=== PATIENT | male | born 1955 | race Hispanic/Latino ===

== ENCOUNTER 2016-11-26 10:12 | Inpatient (IN) | payer OTHER ==
[~2016-11-26] VITALS: Ht 180.3 cm; Wt 91.2 kg
--- NOTE | 2016-11-26 10:26 | ED PSYCHIATRIC COMPLAINT ---
History of Present Illness General Chief Complaint: Psychiatric Related Complaint Stated Complaint: +SI Source: patient Exam Limitations: no limitations Vital Signs & Intake/Output Vital Signs & Intake/Output Vital Signs Date Time Temp Pulse Resp B/P Pulse O2 O2 Flow FiO2 Ox Delivery Rate 11/27 1040 97.9 78 18 139/89 98 Room Air 11/27 0832 98.0 61 18 138/77 97 Room Air 11/27 0633 98.1 81 18 132/86 94 Room Air 11/27 0332 97.9 79 18 133/89 95 Room Air 11/27 0132 98.2 82 18 130/82 95 Room Air 11/26 2301 97.7 74 16 126/74 97 Room Air 11/26 2029 98.7 59 15 140/85 97 Room Air 11/26 1505 100.3 65 20 138/85 96 ED Intake and Output 11/27 0000 11/26 1200 Intake Total Output Total Balance Patient 220 lb Weight Allergies Coded Allergies: NO KNOWN ALLERGIES (11/03/13) Triage Note: 61 YEAR OLD MALE STATES THAT HE HAS HISTORY OF DEPRESSION AND BIPOLAR, STATES HE HAS BEEN HAVING INCREASED DEPRESSION AND THAT ON SATURDAY HE DRANK A LOT OF ALCOHOL AND TOOK 20 KLONOPIN IN AN ATTEMPT TO KILL HIMSELF, STATES THAT HE PASSED OUT AND THAT THE NEXT TIME HE REMEMBERS IS WAKING UP SOMETIME SATURDAY. PT STATES THAT HE HAS MORE CLONAZEPAM HIDDING AT HOME FOR THE NEXT TIME HE ATTEMPTS TO KILL HIMSELF. PT HAS HISTORY IN PAST OF LITHIUM TOXICITY, PT DOES TAKE LITHIUM BUT STATES TO THIS NURSE THAT HE HAS ONLY BEEN TAKING IT PRESCRIBED Triage Nurses Notes Reviewed? yes Onset: Gradual Duration: constant Timing: recent history Severity: severe Severity Numbers: 10 HPI: Patient is a 61-year-old male with a past medical history depression, prostate cancer, bipolar currently on Depakote, hypothyroidism and hypertension who presents emergency room with concerning symptoms of worsening depression and suicide ideation. I states that on he tried to commit suicide overdosing on Klonopin and drinking significant amounts of alcohol, Patient was brought in by his in which she lives in a private residence together with their son. Recent states that with his history of cancer and recent stressors at home and in the media his depression and anxiety have worsened in which she wants to inhale carbon monoxide in his garage and harm himself. Patient is compliant with his medications. Patient has not drank alcohol since the episode on . Denies any illicit drug use. Patient does smoke tobacco on occasion Denies any auditory or visual hallucinations. Patient currently denies any illness (IZZY LOVE) Reconcile Medications Amlodipine Besylate 5 MG TABLET 5 MG PO DAILY hypertension (Reported) Atorvastatin Calcium 20 MG TABLET 20 MG PO DAILY@1700 HYPERLIPIDEMIA ( Reported) Clonazepam 0.5 MG TABLET 1 TAB PO 4XDP PRN ANXIETY (Reported) Lamotrigine 200 MG TABLET 1 TAB PO DAILY MENTAL HEALTH (Reported) [place] Carbonate 300 MG CAPSULE 4 CAP PO DAILY MENTAL HEALTH (Reported) Prazosin HCl 1 MG CAPSULE 1 CAP PO QPM MENTAL HEALTH (Reported) Quetiapine Fumarate 300 MG TABLET 1 TAB PO QPM MENTAL HEALTH (Reported) (MATT TAPIA MD) Past History Travel History Traveled to [facility] past 21 day No Medical History Any Pertinent Medical History? 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 No (IZZY LOVE) Review of Systems Review of Systems Constitutional: Reports: no symptoms. EENTM: Reports: no symptoms. Respiratory: Reports: no symptoms. Cardiovascular: Reports: no symptoms. GI: Reports: no symptoms. Genitourinary: Reports: no symptoms. Musculoskeletal: Reports: no symptoms. Skin: Reports: no symptoms. Neurological/Psychological: Reports: see HPI, depressed. Hematologic/Endocrine: Reports: no symptoms. Immunologic/Allergic: Reports: no symptoms. All Other Systems: Reviewed and Negative (IZZY LOVE) Physical Exam Physical Exam General Appearance: TEARFUL AND ANXIOUS Neurological/Psychiatric: anxious, depressed affect, TEARFUL Appearance/Memory/Insight: appropriate appearance, appropriate insight, denies illness Behavoir/Eye Contact/Speech: cooperative, normal speech, good eye contact Thoughts/Hallucinations: normal thought pattern Comments: HEENT: Normal EENT exam, extraocular motion intact, no nystagmus. Pupils equally round and reactive to light and accommodation. Nose is atraumatic. External auditory canal and Tympanic membranes clear. Pharynx normal. No swelling or edema. Neck: Supple, no lymphadenopathy, normal range of motion without pain or tenderness Back: Nontender, no CVA tenderness. Cardiovascular: Regular rate and rhythms no murmurs rubs or gallops, normal JVP Respiratory: Chest nontender. No respiratory distress.breath sounds clear to auscultation bilaterally Abdomen: Soft, nontender nondistended, no appreciable organomegaly. Normal bowel sounds. No ascites Extremity: No edema, no calf tenderness to palpation, normal and equal pulses. Neuro: Alert oriented x3, motor sensory normal, cranial nerves II through XII grossly intact. Skin: No appreciable rash on exposed skin, skin is warm and dry. Psych: Mood and affect is normal, memory and judgment is normal. SAD PERSONS SAD PERSONS Response Value Male Sex? yes 1 Age <19 or >45 years? yes 1 Depression/Hopelessness? yes 2 Previous Attempts/Psych Care yes 1 Excessive Ethanol/Drug Use? yes 1 Organized/Serious Attempt yes 2 Social Support? has support 0 Stated Future Intent? yes 2 Total 10 SAD PERSONS Done? yes (KARELY SNOW,IZZY) Progress Differential Diagnosis: drug intoxication, drug overdose, drug withdrawal, electrolyte abnormality, encephalitis, hypoglycemia, hypothyroidism, IC hem/mass /tumor, meningitis Plan of Care: Orders Procedure Date/time Status Regular Diet 11/27 L Active EKG 11/27 1039 Active Patient Data - inpatient psych 11/27 1026 Active Admit to inpatient psych 11/27 1026 Active Vital Signs 11/27 UNK Active Nursing Misc 11/27 UNK Active Alternative Nursing Therapy 11/27 UNK Active Activity/Ambulation 11/27 UNK Active Heart Healthy Diet 11/26 D Complete Current Medications Sig/Genoveva Start time Last Medication Dose Stop Time Status Admin Amlodipine Besylate 5 MG DAILY 11/28 1000 [facility] (Norvasc) Prazosin HCl 1 MG QPM 11/27 2199 UNVr (Minipress 1 MG) Quetiapine Fumarate 300 MG AT BEDTIME 11/27 220 UN[facility]r (Seroquel) Atorvastatin Calcium 20 MG DAILY@1700 11/27 1700 UNVr (Lipitor) Clonazepam 0.5 MG Q6P PRN 11/27 1045 UNVr (KlonoPIN) 12/04 1044 [place]bo[place] Carbonate 600 MG BID 11/27 1045 UNVr Lamotrigine 200 MG DAILY 11/27 1030 UNVr (LaMICtal) Laboratory Tests 11/26/16 1138: [place] 0.8, Serum Alcohol < 10.0 11/26/16 1138: Anion Gap 7, Estimated GFR > 60, BUN/Creatinine Ratio 8.9, Glucose 97, Calcium 10.3 H, Total Bilirubin 0.6, AST 25, ALT 37, Alkaline Phosphatase 67, Total Protein 7.0, Albumin 4.3, Globulin 2.7, Albumin/Globulin Ratio 1.6, TSH 1.610, Free T4 0.75 L, CBC w Diff NO MAN DIFF REQ, RBC 5.28, MCV 87.7, MCH 29.5, RDW 14.6 H, MPV 9.8, Gran % 81.4 H, Lymphocytes % 10.9 L, Monocytes % 5.6, Eosinophils % 1.8, Basophils % 0.3, Absolute Granulocytes 6.5, Absolute Lymphocytes 0.9 L, Absolute Monocytes 0.4, Absolute Eosinophils 0.1, Absolute Basophils 0, PUBS MCHC 33.6, Urine Opiates Screen < 100.00, Methadone Screen < 40, Barbiturate Screen < 60, Ur Phencyclidine Scrn < 6.00, Amphetamines Screen < 100, U Benzodiazepines Scrn < 85, Urine Cocaine Screen < 50, Urine Cannabis Screen < 5.00, Urinalysis LIGHT H, Urine Color YEL, Urine Clarity HAZY H, Urine pH 8.0, Ur Specific [place] 1.025, Urine Protein >=300 H, Urine Ketones NEG, Urine Nitrite NEG, Urine Bilirubin NEG, Urine Urobilinogen 1.0, Ur Leukocyte Esterase NEG, Ur Microscopic SEDIMENT EXAMINED, Urine RBC 1-3, Urine WBC 1-3 H, Ur Epithelial Cells FEW, Granular Casts FEW H, Urine Mucus FEW, Urine Hemoglobin TRACE-INTACT H, Urine Glucose NEG Discussed hand off with Dr. GLEASON who is aware patient's concerning symptoms of depression and suicide ideation. Patient was discussed with crisis management who have not evaluated patient however they state that most likely patient will be admitted or have that placement search for his concerning symptoms. (KARELY SNOW,IZZY) 11/26/2016 8:46:58 PM Patient signed out to me by Dr. Gleason at change of shift. Pending crisis disposition. At this time he is placed on the PCE and is undergoing a bed search. He will likely be admitted to Inpatient Psychiatry tomorrow if there is a discharge. (LYNDA TANNER MD) Hand-Off Endorsed To: ARABELLA GLEASON DO Endorsed Time: 1800 Pending: consult (IZZY LOVE) Hand-Off Endorsed To: MATT TAPIA MD Endorsed Time: 0700 Pending: consult (CRISIS DISPOSITION) (LYNDA TANNER MD) Comments: To be admitted to [facility] (MATT TAPIA MD) Departure Departure Disposition: STILL A PATIENT Condition: Critical Referrals: NAT HUFFMAN,KIRSTIN Wilson (PCP/Family) Departure Forms: Customer Survey General Discharge Information (IZZY LOVE) Departure Comments 11/26/16 The patient was signed out to me by Izzy Barry. I signed the patient out to Dr. Tanner. He is pending evaluation by crisis. (ARABELLA GLEASON DO) Departure Time of Disposition: 1046 Clinical Impression Primary Impression: Depression Qualifiers: Depression Type: unspecified Qualified Code: F32.9 - Major depressive disorder, single episode, unspecified Psych Admission Note Psychiatric Admission: I have seen and evaluated ELOISE ARREAGA. I have also reviewed all the pertinent lab results and diagnostic results. ELOISE ARREAGA will be admitted to our inpatient Psychiatric unit for treatment and care. (MATT TAPIA MD) Critical Care Note Critical Care Note Critical Care Time: 30-74 min (IZZY LOVE)
--- NOTE | 2016-11-26 10:35 | NUR ---
PT TO DAE CALI EVALUATING AT PRESENT
--- NOTE | 2016-11-26 10:49 | NUR ---
SECURITY PRESENT FOR WANDING AND CHANGING PATIENT
--- NOTE | 2016-11-26 11:25 | NUR ---
1 VALUABLES BAG LOCKED IN ED SAFE
[2016-11-26] MEDS ORDERED: LITHIUM CARBON300 M4 PO (11:40)
[2016-11-26] MEDS ORDERED: QUETIAPINE FUM300 M1 PO (11:40)
[2016-11-26] MEDS ORDERED: PRAZOSIN HCL1 M1 PO (11:41)
[2016-11-26] MEDS ORDERED: CLONAZEPAM0.5 M2 PO (11:41)
[2016-11-26] MEDS ORDERED: LAMOTRIGINE200 M2 PO (11:41)
--- NOTE | 2016-11-26 11:50 | NUR ---
LABS DRAWN AND SENT,LAV,SST,BLUE TOP, PT TEARY AT THIS TIME
--- NOTE | 2016-11-26 12:00 | NUR ---
REPORT RECEIVED AND CARE ASSUMED. PT SITTING QUIETLY ON STRETCHER. REPORTS SI WITH SEVERAL PLANS. STATES THAT HE IS "ENTERTAINING CUTTING MY WRIST VERTICALLY. OR I MIGHT CUT MY JUGULAR. I'VE THOUGHT ABOUT PARKING MY CAR IN THE GARAGE AND CLOSING THE DOOR AND BEING DONE IN 20 MINUTES. I KNOW I NEED A BACK-UP PLAN." PT REPORTS DEPRESSION OVER PROSTATE CA. PT STATES "I AM NOT PARANOID. THE [employer] POLICE ARE WATCHING ME. I LIKE TO WALK FOR EXERCISE AND THEY ARE FOLLOWING ME BECAUSE OF MY RACE. I'VE NEVER HURT PEOPLE OR STOLEN. I HAD TO CONTACT AN STAFF AIR TACTICAL OFFICER IN [place] AND NOW I'M GOING TO CONTACT [employer] AND PAOLA HERNANDEZ SO THEY STOP HARRASSING ME." PT IS PLEASANT, CALM, AND COOPERATIVE. VSS. NO ACUTE DISTRESS NOTED. WILL MONITOR.
[2016-11-26 12:01] LABS: ABSOLUTE BASOPHIL COUNT 0 /CUMM (0.0-0.2); ABSOLUTE EOSINOPHIL COUNT 0.1 /CUMM (0.0-0.7); ABSOLUTE GRANULOCYTE CT 6.5 /CUMM (1.4-6.5); ABSOLUTE LYMPH COUNT 0.9 /CUMM (1.2-3.4); ABSOLUTE MONOCYTE COUNT 0.4 /CUMM (0.10-0.60); BASOPHIL % 0.3 % (0.0-2.0); EOSINOPHIL % 1.8 % (0-5); GRANULOCYTE % 81.4 % (42.2-75.2); HEMATOCRIT 46.3 % (42-52); MEAN CORPUSCULAR HGB 29.5 PG (27.0-31.0); MEAN CORPUSCULAR HGB CONC 33.6 G/DL (33.0-37.0); MEAN CORPUSCULAR VOLUME 87.7 FL (80.0-94.0); MEAN PLATELET VOLUME 9.8 FL (7.4-10.4); PLATELET COUNT 212 /CUMM (130-400); RBC DISTRIBUTION WIDTH 14.6 % (11.5-14.5); RED BLOOD CELL CT 5.28 /CUMM (4.70-6.10); WHITE BLOOD CELL COUNT 7.9 /CUMM (4.8-10.8)
[2016-11-26 12:10] LABS: LITHIUM 0.8 mmol/L (0.6-1.2)
--- NOTE | 2016-11-26 12:23 | NUR ---
MEDICATIONS SENT TO PHARMACY. PT IS CALM AND COOPERATIVE ON STRETCHER. UNDERSTANDS PLAN OF CARE. PATIENT SAFETY MONITOR ON CONTINOUS OBSERVATION OF PATIENT.
--- NOTE | 2016-11-26 16:38 | NUR ---
PT RESTING COMFORTABLY. HE IS A/O X 3, CALM, COOPERATIVE, AND ACTING APPROPRIATELY AT THIS TIME. VSS. NO ACUTE DISTRESS NOTED. WILL CONTINUE TO MONITOR.
--- NOTE | 2016-11-26 18:27 | NUR ---
PT REQUESTING TO KNOW HIS LEGAL STATUS. STATES THAT HE IS CONSIDERING SIGNING OUT AMA IF HE IS NOT ON A PEC. STATES THAT HE REQUIRES HUMAN INTERACTION AND HE HAS BEEN WAITING TO SPEAK WITH SOMEONE. WICHO, VERIFYING SPECIALIST, ADVISED AND IS TO EVALUATE PT AT THIS TIME. PT OFFERED AND GIVEN MORE BLANKETS AND OFFERED TO BE PLACED ON A STRETCHER FOR COMFORT RATHER THAN IN THE LOUNGE CHAIR. PT DECLINED, STATING THAT HE IS MORE COMFORTABLE IN CHAIR. WILL CONTINUE TO MONITOR.
--- NOTE | 2016-11-26 19:55 | ED PSYCH CRISIS CONSULTATION ---
Crisis Consult Basic Assessment Date of Consult: 11/26/16 Responsible Person/Accompanied By: Brought in by Insurance Authorization: Insurance #1: Insurance name: RASHID MERCADO Phone number: Policy number: [id number] Group number: [id number] Authorization number: ED Provider: Patient's ED Provider: ARABELLA GLEASON DO Primary Care Physician: Patient's PCP: KIRSTIN JOHNS MD PCP's Current Psychiatrist: Dr. Naik in [place], [place] Chief Complaint: Psychiatric Related Complaint Patient's Quote: " How many hours have you been here today?" Present Illness: The patient is a 61 year old, , male self-presenting to the ED with increased symptoms of Bipolar and +SI. The patient presented as extremely labile and was anxious, angry, depressed and tearful during the evaluation. He reports that he was diagnosed with Bipolar many years ago and feels that his symptoms have gotten worse, since he was diagnosed with Prostate Cancer. He states that despite having his surgery years ago, he is always anxious about having the cancer and he is not able to get past it. He states that his mood is up and down despite his medications. He sees a private psychiatrist in the community; Dr. Naik out of [place], [place] He does have a history of being admitted to [facility] and [facility] in the past. He reports feeling, helpless, hopeless, worthless, depressed, anxious, with sleep disturbances and suicidal ideations. He noted that he has multiple plans to kill himself, via slitting his wrist, cutting his jugular or by carbon monoxide with his car. He states "that he is obsessed with ," and does not know why. The patient did state he recently took an overdose of pills and was drinking alcohol. He states that he has been in recovery from alcohol abuse and he does not know what made him drink. He denies and drug abuse and his toxicology screen was negative. He does present somewhat paranoid around the police and notes that they "have been profiling him," noting he went to the [facility] and he did not do anything. He denies any homicidal statements, however did say " I hate autocad technician." He states that he would hurt himself, before he would hurt anyone else. 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 He owns his own home and resides with his . SW could not contact his at this time, because he states they changed their number because of "scams" and he does not have it (it may be in his belongings). There is a significant history of mental health issues in his family and 2 of his uncles did commit suicide. The patient is not clear about what would be helpful, however was preoccupied with "his legal status," and states your going to have to put me on a PEC. Patient's Address: [address] [place] [address] Home Phone Number: [phone] Other Phone Number: Who Do You Live With? Spouse Family/Informants Interviewed: Sw was unable to contact his , secondary to noting having the phone number. Allergies - Coded Allergies: NO KNOWN ALLERGIES (11/03/13) Current Medications - Scheduled Medications Lamotrigine 200 MG TABLET 1 TAB PO DAILY MENTAL HEALTH #90 (Reported) Entered as Reported by TYE CHAUDHRY on 11/26/16 1141 [place] Carbonate 300 MG CAPSULE 4 CAP PO DAILY MENTAL HEALTH #360 (Reported) Entered as Reported by TYE CHAUDHRY. on 11/26/16 1140 Prazosin HCl 1 MG CAPSULE 1 CAP PO QPM MENTAL HEALTH #90 (Reported) Entered as Reported by TYE CHAUDHRY. on 11/26/16 1141 Quetiapine Fumarate 300 MG TABLET 1 TAB PO QPM MENTAL HEALTH #90 (Reported) Entered as Reported by TYE CHAUDHRY on 11/26/16 1140 Scheduled PRN Medications Clonazepam 0.5 MG TABLET 1 TAB PO 4XDP PRN ANXIETY #360 (Reported) Entered as Reported by TYE CHAUDHRY on 11/26/16 1141 Laboratory Results: Laboratory Tests 11/26/16 1138: [place] 0.8, Serum Alcohol < 10.0 11/26/16 1138: Anion Gap 7, Estimated GFR > 60, BUN/Creatinine Ratio 8.9, Glucose 97, Calcium 10.3 H, Total Bilirubin 0.6, AST 25, ALT 37, Alkaline Phosphatase 67, Total Protein 7.0, Albumin 4.3, Globulin 2.7, Albumin/Globulin Ratio 1.6, TSH 1.610, Free T4 0.75 L, CBC w Diff NO MAN DIFF REQ, RBC 5.28, MCV 87.7, MCH 29.5, RDW 14.6 H, MPV 9.8, Gran % 81.4 H, Lymphocytes % 10.9 L, Monocytes % 5.6, Eosinophils % 1.8, Basophils % 0.3, Absolute Granulocytes 6.5, Absolute Lymphocytes 0.9 L, Absolute Monocytes 0.4, Absolute Eosinophils 0.1, Absolute Basophils 0, PUBS MCHC 33.6, Urine Opiates Screen < 100.00, Methadone Screen < 40, Barbiturate Screen < 60, Ur Phencyclidine Scrn < 6.00, Amphetamines Screen < 100, U Benzodiazepines Scrn < 85, Urine Cocaine Screen < 50, Urine Cannabis Screen < 5.00, Urinalysis LIGHT H, Urine Color YEL, Urine Clarity HAZY H, Urine pH 8.0, Ur Specific [place] 1.025, Urine Protein >=300 H, Urine Ketones NEG, Urine Nitrite NEG, Urine Bilirubin NEG, Urine Urobilinogen 1.0, Ur Leukocyte Esterase NEG, Ur Microscopic SEDIMENT EXAMINED, Urine RBC 1-3, Urine WBC 1-3 H, Ur Epithelial Cells FEW, Granular Casts FEW H, Urine Mucus FEW, Urine Hemoglobin TRACE-INTACT H, Urine Glucose NEG Past History Past Medical History Neurological: NONE EENT: NONE Cardiovascular: hypertension, hyperlipidemia Respiratory: obstructive sleep apnea Gastrointestinal: NONE Hepatic: NONE Renal: NONE Musculoskeletal: NONE Psychiatric: alcohol dependence, bipolar disease, depression Endocrine: hypothyroidism Blood Disorders: NONE Cancer(s): prostate cancer 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 The patient does own his own home and has insight into his need for treatment. Physical Limitations (Interventions): None noted Psychiatric Treatment History Psych Treatment Psychiatric Treatment Yes Inpatient Treatment Yes Outpatient Treatment Yes Location of Treatment [facility], [facility] and Dr. Naik Reason for Treatment Bipolar Disorder Dates of Treatment Multiple dates.. current with Dr. Naik, last IP [facility] 2003 Diagnosis by History: Bipolar Disorder Substance Use/Abuse History Drug Use/Abuse Substances Used/Abused Yes Substance Used/Abused Alcohol First Use unclear Last Used Last week How much used/taken unclear How often The pt. states he does not drink, but he did with pills in OD attempt For how long The patient states that he has been in recovery until last week Route of use oral Substance Abuse Treatment Substance Abuse Treatment Past Substance Abuse [place] Yes Inpatient Treatment Yes Outpatient Treatment Yes Location of Treatment [facility] and [facility] Reason for Treatment Alcohol abuse and Bipolar disorder Dates of Treatment Multiple dates- last IP at [place] 2004 Response to Treatment The patient states that he has been in recovery for many years and that he did drink last week when he attempted suicide. Comments: N/A Current Mental Status Mental Status Orientation: Person, Place, Situation Affect: Anxious, Angry, Depressed, Labile Speech: Loud (Varing) Neuro-vegetative: Anhedonia, Helpless, Sleep Disturbance, Hopeless, Worthless Appearance Appearance- Dress/Hygiene: The patient was sitting in a chair, dressed in hosptial attire, with a blanket wrapped around his head, tearful. He was extremely labile and very expressive with body language while discussing his symptoms. Behaviors Thought Process: Loose Association, Tangential Thought Content: Paranoid (* slightly paranoid) Memory: WNL Insight: Fair SI/HI Risk Assessment Past Suicidal Ideation/Attempts Yes Current Suicidal Ideation/Att Yes Past Homicidal Ideation/Att: No Current Homicidal Ideation/Attempts No (" but I hate autocad technician") Degree of Intent: The patient states that he does have + SI with a plan to slit his wrist, slit his jugular or suicide via carbon monoxide in his garage., He states that he did take an overdose last week while he was drinking. Danger To: Others, Self Gravely Disabled: N/A Risk Factors: chronic/serious med cond., history of suicide atmpts, male Lethality Ratin PTSD Checklist PTSD Done? pt unable to participate (Pt. too upset to elaborate) ED Management Sitter: Yes Restraints: No DSM5/PS Stressors/Medical Prob Diagnosis' (DSM 5, Stressors, Medical): F31.9 Unspecified Bipolar Disorder and F10.10 Alcohol Use Disorder ( pt. reports recent relapse when he attempted suicide). Medical: Hypothyroidism, hypertension, hx. of Prostate Cancer. Stressors: Chronic Mental health issues and chronic medical issues. Current GAF: 25 Comments: N/A Departure Disposition Psych Medical Clearance Date: 11/26/16 Medically Cleared at: 1230 Time Started: 1814 Time Ended: 1914 Psychiatrist Consulted: Dr. Fairchild Date Disposition Established: 11/26/16 Time Disposition Established: 1929 Plan for Disposition - Modality: Hold over for admission to [facility] or bed search Contact: N/A Telephone: N/A Rationale for Disposition: The patient presents with mood lability, decreased sleep, feeing helpless, feeling hopeless, feeling worthless and suicidal ideations. The patient recently attempted suicide and is currently planning to slit his wirst, slit his jugular or kill himself via carbon monoxide. Case discussed with Dr. Montiel and she finds the patient to be an acute risk to self and in need of an inpatient hospitalization. The patient will be held over and admitted to [facility] if there is a bed or a bed search will be started if there are no available beds. Type of IP Admission: PEC Additional Instructions: N/A Referrals NAT HUFFMAN,KIRSTIN Wilson (PCP/Family)
--- NOTE | 2016-11-26 20:08 | NUR ---
PT EVALUATED BY WICHO FROM CRISIS. PT HAS ADVISED THIS R.N. THAT HE UNDERSTANDS HIS LEGAL RIGHTS AND THAT THERE IS NOTHING IN WRITING STATING THAT HE CAN NOT LEAVE ALTHOUGH WICHO TOLD HIM THAT IF HE ATTEMPTED TO, HE WOULD NOT BE ABLE TO. PT STATED THAT IF HE WAS RESTRAINED FROM LEAVING, IT WOULD BE A VIOLATION OF HIS RIGHTS AND TOO LATE TO PUT IT IN WRITING. WICHO NOTIFIED. PT BEING PLACED ON PEC FOR SAFETY.
--- NOTE | 2016-11-26 20:20 | NUR ---
PT PLACED ON PEC BY CRISIS
--- NOTE | 2016-11-26 23:09 | NUR ---
PT SITTING ON BED QUIETLY. DENIES ANY COMPLAINTS AT THIS TIME. VSS. NO ACUTE DISTRESS NOTED. REPORT GIVEN TO Pollo HOLM
--- NOTE | 2016-11-27 01:38 | NUR ---
PT SLEEPING AT THIS TIME, BILATERAL CHEST RISE AND FALL, NO DISTRESS.
--- NOTE | 2016-11-27 03:00 | NUR ---
PT SLEEPING AT THIS TIME. BILATERAL CHEST RISE AND FALL NOTED. SITTER AT BEDSIDE FOR SAFETY, NO DISTRESS NOTED.
--- NOTE | 2016-11-27 05:00 | NUR ---
PT SLEEPING AT THIS TIME, NO COMPLAINTS, SITTER AT BEDSIDE
--- NOTE | 2016-11-27 06:28 | NUR ---
PT SLEEPING AT THIS TIME, NO APPARENT DISTRESS, SITTER AT BEDSIDE FOR SAFETY
--- NOTE | 2016-11-27 07:30 | NUR ---
ASSUMED CARE, SITTING UP IN BED, WATCHING TV.
--- NOTE | 2016-11-27 10:11 | NUR ---
EVALUATED BY INSPECTOR ROUGH CASTINGS (CAROLE). PT TO BE ADMITTED TO [facility].
--- NOTE | 2016-11-27 10:19 | NUR ---
AWAKE, ALERT, OFFERS NO COMPLAINTS.
--- NOTE | 2016-11-27 10:27 | IP CRISIS DIAG ASSESS PSYCH ---
See Addendum Diagnostic Assessment Basic Assessment Insurance Authorization: Insurance #1: Insurance name: RASHID MERCADO Phone number: Policy number: [id number] Group number: [id number] Authorization number: Primary Care Physician: Patient's PCP: KIRSTIN JOHNS MD PCP's Patient's Quote: " How many hours have you been here today?" Present Illness: The patient is a 61 year old, , male self-presenting to the ED with increased symptoms of Bipolar and +SI. The patient presented as extremely labile and was anxious, angry, depressed and tearful during the evaluation. He reports that he was diagnosed with Bipolar many years ago and feels that his symptoms have gotten worse, since he was diagnosed with Prostate Cancer. He states that despite having his surgery years ago, he is always anxious about having the cancer and he is not able to get past it. He states that his mood is up and down despite his medications. He sees a private psychiatrist in the community; Dr. Naik out of [place], [place] He does have a history of being admitted to [facility] and [facility] in the past. He reports feeling, helpless, hopeless, worthless, depressed, anxious, with sleep disturbances and suicidal ideations. He noted that he has multiple plans to kill himself, via slitting his wrist, cutting his jugular or by carbon monoxide with his car. He states "that he is obsessed with ," and does not know why. The patient did state he recently took an overdose of pills and was drinking alcohol. He states that he has been in recovery from alcohol abuse and he does not know what made him drink. He denies and drug abuse and his toxicology screen was negative. He does present somewhat paranoid around the police and notes that they "have been profiling him," noting he went to the [facility] and he did not do anything. He denies any homicidal statements, however did say " I hate lurer." He states that he would hurt himself, before he would hurt anyone else. 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 He owns his own home and resides with his . SW could not contact his at this time, because he states they changed their number because of "scams" and he does not have it (it may be in his belongings). There is a significant history of mental health issues in his family and 2 of his uncles did commit suicide. The patient is not clear about what would be helpful, however was preoccupied with "his legal status," and states your going to have to put me on a PEC. Patient's Address: [address] [place] [address] Home Phone Number: [phone] Other Phone Number: Who Do You Live With? Spouse Feel Safe Where You Live? Yes Feel Safe in Your Relationship Yes Marital Status: Do You Have Children? Yes Ages? 23 & 33 Primary Language? Turkish Family/Informants Interviewed: Sw was unable to contact his , secondary to noting having the phone number. Allergies - Coded Allergies: NO KNOWN ALLERGIES (11/03/13) Current Medications - Scheduled Medications Lamotrigine 200 MG TABLET 1 TAB PO DAILY MENTAL HEALTH #90 (Reported) Entered as Reported by TYE CHAUDHRY on 11/26/16 1141 [place] Carbonate 300 MG CAPSULE 4 CAP PO DAILY MENTAL HEALTH #360 (Reported) Entered as Reported by TYE CHAUDHRY on 11/26/16 1140 Prazosin HCl 1 MG CAPSULE 1 CAP PO QPM MENTAL HEALTH #90 (Reported) Entered as Reported by TYE CHAUDHRY. on 11/26/16 1141 Quetiapine Fumarate 300 MG TABLET 1 TAB PO QPM MENTAL HEALTH #90 (Reported) Entered as Reported by TYE CHAUDHRY on 11/26/16 1140 Scheduled PRN Medications Clonazepam 0.5 MG TABLET 1 TAB PO 4XDP PRN ANXIETY #360 (Reported) Entered as Reported by TYE CHAUDHRY on 11/26/16 1141 Consequences of Psych Med Use: N/A Comment: N/A Lab Results: Laboratory Tests 11/26/16 1138: Hoback 0.8, Serum Alcohol < 10.0 11/26/16 1138: Anion Gap 7, Estimated GFR > 60, BUN/Creatinine Ratio 8.9, Glucose 97, Calcium 10.3 H, Total Bilirubin 0.6, AST 25, ALT 37, Alkaline Phosphatase 67, Total Protein 7.0, Albumin 4.3, Globulin 2.7, Albumin/Globulin Ratio 1.6, TSH 1.610, Free T4 0.75 L, CBC w Diff NO MAN DIFF REQ, RBC 5.28, MCV 87.7, MCH 29.5, RDW 14.6 H, MPV 9.8, Gran % 81.4 H, Lymphocytes % 10.9 L, Monocytes % 5.6, Eosinophils % 1.8, Basophils % 0.3, Absolute Granulocytes 6.5, Absolute Lymphocytes 0.9 L, Absolute Monocytes 0.4, Absolute Eosinophils 0.1, Absolute Basophils 0, PUBS MCHC 33.6, Urine Opiates Screen < 100.00, Methadone Screen < 40, Barbiturate Screen < 60, Ur Phencyclidine Scrn < 6.00, Amphetamines Screen < 100, U Benzodiazepines Scrn < 85, Urine Cocaine Screen < 50, Urine Cannabis Screen < 5.00, Urinalysis LIGHT H, Urine Color YEL, Urine Clarity HAZY H, Urine pH 8.0, Ur Specific Hurley 1.025, Urine Protein >=300 H, Urine Ketones NEG, Urine Nitrite NEG, Urine Bilirubin NEG, Urine Urobilinogen 1.0, Ur Leukocyte Esterase NEG, Ur Microscopic SEDIMENT EXAMINED, Urine RBC 1-3, Urine WBC 1-3 H, Ur Epithelial Cells FEW, Granular Casts FEW H, Urine Mucus FEW, Urine Hemoglobin TRACE-INTACT H, Urine Glucose NEG Toxicology Screen Completed? Yes Results: negative Symptoms of Use: N/A Past History Past Medical History Medical History: Hypertension, Hypothyroidism, History of Prostate Cancer Past Surgical History Surgical History Surgery for his Prostate Cancer Abuse/Trauma History Trauma History/Current Trauma: emotional Victim or Perpretator? victim Patient's Age at Time of Trauma: 1 (Childhood) History of Trauma/Abuse Treatment? No Abuse/Trauma Treatment: The patient has been in treatment for most of his life, however it is unclear if he was specifically treated for his trauma. He notes that he feels very traumatized from his childhood, as he was bullied. He notes that he and his mother were bullied because they were and [place] and his mother had a unique accent and dialect. Legal History Current Legal Status: none Have you ever been arrested? 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 The patient does own his own home and has insight into his need for treatment. Physical Limitations (Interventions): None noted Psychiatric Treatment History Psych Treatment Psychiatric Treatment Yes Inpatient Treatment Yes Outpatient Treatment Yes Location of Treatment [facility], [facility] and Dr. Naik Reason for Treatment Bipolar Disorder Dates of Treatment Multiple dates.. current with Dr. Naik, last IP [facility] 2003 Diagnosis by History: Bipolar Disorder Risk Factors: chronic/serious med cond., history of suicide atmpts, male Substance Use/Abuse History Drug Use/Abuse minimum 12mo Hx Substances Used/Abused Yes Substance Used/Abused Alcohol First Use unclear Last Used Last week How much used/taken unclear How often The pt. states he does not drink, but he did with pills in OD attempt For how long The patient states that he has been inrecovery until last week Route of use oral Substance Abuse Treatment Substance Abuse Treatment Past Substance Abuse [place] Yes Inpatient Treatment Yes Outpatient Treatment Yes Location of Treatment [facility] Reason for Treatment Alcohol abuse and Bipolar disorder Dates of Treatment Multiple dates- last IP at [place] [id number] Response to Treatment The patient states that he has been in recovery for many years and that he did drink last week when he attempted suicide. Comments: The patient states that he has been in recovery for many years and that he only drank during his suicide attempt last week and has not had anything to drink since. He does note that he has a sponsor and does attend . Sexual History Sexual Concerns: None noted Education History Highest Level of Education: bachelor's degree, master's degree Preferred Learning Style: Unclear Current Mental Status Mental Status Orientation: Person, Place, Situation Affect: Anxious, Angry, Labile Speech: Loud (Varing) Neuro-vegetative: Anhedonia, Helpless, Sleep Disturbance, Hopeless Worthless Appearance Appearance- Dress/Hygiene: The patient was sitting in a chair, dressed in hosptial attire, with a blanket wrapped around his head, tearful. He was extremely labile and very expressive with body language while discussing his symptoms. Behaviors Thought Process: Loose Association, Tangential Thought Content: Obsessions, Paranoid (* slightly paranoid), The patient states that he has been having obsessive thoughts re: his cancer and . Memory: WNL Insight: Fair SI/HI Risk Assessment - Minimum 6mo History- Past Suicidal Ideation/Attempts Yes Current Suicidal Ideation/Att Yes Past Homicidal Ideation/Att: No Current Homicidal Ideation/Attempts No (" but I hate lurer") Degree of Intent: The patient states that he does have + SI with a plan to slit his wrist, slit his jugular or suicide via carbon monoxide in his garage. He states that he did take an overdose last week while he was drinking. Danger To: Others, Self Gravely Disabled: N/A Risk Factors: chronic/serious med cond., history of suicide atmpts, male Lethality Ratin Needs/Init TX Plan/Goals: Admit to inpatient unit to stabilize symptoms and medications. Attend group, family and individual sessions. Work with treatment team to transition back to care in the community. AUDIT-C Questionnaire: AUDIT-C Questionnaire: Response Value ETOH use in the past year Monthly or less 1 # drinks typical/day 3 or 4 1 6 or > drinks per occasion Never 0 Total 2 DSM5/PS Stressors/Medical Prob Diagnosis' (DSM 5, Stressors, Medical): F31.9 Unspecified Bipolar Disorder and F10.10 Alcohol Use Disorder ( pt. reports recent relapse when he attempted suicide). Medical: Hypothyroidism, hypertension, hx. of Prostate Cancer. Stressors: Chronic Mental health issues and chronic medical issues. Current GAF: 25 Comments: N/A
[2016-11-27] MEDS ORDERED: ATORVASTATIN CA20 M1 PO (10:36)
[2016-11-27] MEDS ORDERED: AMLODIPINE BESYL5 M1 PO (10:36)
--- NOTE | 2016-11-27 10:56 | NUR ---
REPORT TO GARFIELD KILLIAN.
--- NOTE | 2016-11-27 11:09 | NUR ---
AM MEDS GIVEN.
--- NOTE | 2016-11-27 11:31 | SOCIAL WORKER SOCIAL HX PSYCH ---
Social History Basic Assessment Insurance Authorization: Insurance #1: Insurance name: RASHID MERCADO Phone number: Policy number: [id number] Group number: [id number] Authorization number: Curr Source of Income/Entitlements: Fdc Primary Care Physician: Patient's PCP: KIRSTIN JOHNS MD PCP's Present Problem: The patient is a 61 year old, , male self-presenting to the ED with increased symptoms of Bipolar and +SI. The patient presented as extremely labile and was anxious, angry, depressed and tearful during the evaluation. He reports that he was diagnosed with Bipolar many years ago and feels that his symptoms have gotten worse, since he was diagnosed with Prostate Cancer. He states that despite having his surgery years ago, he is always anxious about having the cancer and he is not able to get past it. He states that his mood is up and down despite his medications. He sees a private psychiatrist in the community; Dr. Naik out of [place], [place] He does have a history of being admitted to [facility] and [facility] in the past. He reports feeling, helpless, hopeless, worthless, depressed, anxious, with sleep disturbances and suicidal ideations. He noted that he has multiple plans to kill himself, via slitting his wrist, cutting his jugular or by carbon monoxide with his car. He states "that he is obsessed with ," and does not know why. The patient did state he recently took an overdose of pills and was drinking alcohol. He states that he has been in recovery from alcohol abuse and he does not know what made him drink. He denies and drug abuse and his toxicology screen was negative. He does present somewhat paranoid around the police and notes that they "have been profiling him," noting he went to the [facility] and he did not do anything. He denies any homicidal statements, however did say " I hate correctional cook." He states that he would hurt himself, before he would hurt anyone else. 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 He owns his own home and resides with his . SW could not contact his at this time, because he states they changed their number because of "scams" and he does not have it (it may be in his belongings). There is a significant history of mental health issues in his family and 2 of his uncles did commit suicide. The patient is not clear about what would be helpful, however was preoccupied with "his legal status," and states your going to have to put me on a PEC. Primary Language? Polish Living Situation Rents or Owns Home? owns Residential Care/Treatment Fac N/A Feel Safe Where You Are Living Yes Feel Safe in Relationships? Yes Comments: N/A Allergies - Coded Allergies: NO KNOWN ALLERGIES (11/03/13) Current Medications - Scheduled Medications Amlodipine Besylate 5 MG TABLET 5 MG PO DAILY hypertension #90 (Reported) Entered as Reported by MICHAEL ACOSTA MD on 11/27/16 1036 Atorvastatin Calcium 20 MG TABLET 20 MG PO DAILY@1700 HYPERLIPIDEMIA #90 ( Reported) Entered as Reported by MICHAEL ACOSTA MD on 11/27/16 1036 Lamotrigine 200 MG TABLET 1 TAB PO DAILY MENTAL HEALTH #90 (Reported) Entered as Reported by TYE CHAUDHRY on 11/26/16 1141 [place] Carbonate 300 MG CAPSULE 4 CAP PO DAILY MENTAL HEALTH #360 (Reported) Entered as Reported by TYE CHAUDHRY on 11/26/16 1140 Prazosin HCl 1 MG CAPSULE 1 CAP PO QPM MENTAL HEALTH #90 (Reported) Entered as Reported by TYE CHAUDHRY on 11/26/16 1141 Quetiapine Fumarate 300 MG TABLET 1 TAB PO QPM MENTAL HEALTH #90 (Reported) Entered as Reported by TYE CHAUDHRY on 11/26/16 1140 Scheduled PRN Medications Clonazepam 0.5 MG TABLET 1 TAB PO 4XDP PRN ANXIETY #360 (Reported) Entered as Reported by TYE CHAUDHRY on 11/26/16 1141 Consequences of Psych Med Use: N/A Comments: N/A Past History Past Medical History Neurological: NONE EENT: NONE Cardiovascular: hypertension, hyperlipidemia Respiratory: obstructive sleep apnea Gastrointestinal: NONE Hepatic: NONE Renal: NONE Musculoskeletal: NONE Psychiatric: alcohol dependence, bipolar disease, depression Endocrine: hypothyroidism Blood Disorders: NONE Cancer(s): prostate cancer LOG COOKER/Reproductive: NONE Past Surgical History Surgical History: non-contributory /Family History Place/Country of Origin: [place] Childhood Family Constellation: Mother,father, and 2 brothers Primary Childhood Caretakers: father, mother Family Life During Childhood: "Beautiful" DCF Involvement? No Mother's Age (Current/): 85 (Living in [place]) Relationship w/Mother: "Beautiful" Father's Age (Current/): 80 () Relationship w/Father: Unclear Any Sibling(s)? Yes Sibling's Gender(s)/Age(s): male Sibling 1:, male Sibling 2: Relationship w/Sibling(s): "So- So" Relationship w/Friends: The patient states that he did have trouble making friends until he was in [facility], however notes that he currently has no issues with making friends. Family Psych/Sub Abuse/Add Hx: There is a family history of Bipolar and Schizophrenia. The patient notes that two of his uncles committed suicide. Other Comments: N/A Abuse/Trauma History Trauma History/Current Trauma: emotional Victim or Perpretator? victim Patient's Age at Time of Trauma: 1 (Childhood) History of Trauma/Abuse Treatment? No Abuse/Trauma Treatment: The patient has been in treatment for most of his life, however it is unclear if he was specifically treated for his trauma. He notes that he feels very traumatized from his childhood, as he was bullied. He notes that he and his mother were bullied because they were and [place] and his mother had a unique accent and dialect. Legal History Legal Guardian/Address/Phone: Self Current Legal Status: none Pending Court Dates: N/A Have you ever been arrested No Number of Arrests: 0 Hx of Juvenile Legal Charges? No Hx of Adult Legal Charges? 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 The patient does own his own home and has insight into his need for treatment. Weaknesses: The patient has been having obsessive thoughts about and his history of Prostate Cancer. Physical Limitations (Interventions): None noted Last Physical: Unknown History of Seizures? No History of Blackouts? Yes Last Blackout: last week during overdose ADL Limitations: None noted Bazine/Social/Peer Relations The patient states that he did have trouble making friends when he was younger, however does not have any problems now. 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 Childhood Mu-Ism: Druze Current Mormon Affiliation: Druze Is Spirituality Important to You? Unclear Cultural/Ethnic Issues: None noted Are There Developmental Issues? No Milestones Achieved: fine motor, gross motor Psychiatric Treatment History Psych Treatment Inpatient Treatment Yes Outpatient Treatment Yes Location of Treatment [facility] and Dr. Naik Reason for Treatment Bipolar Disorder Dates of Treatment Multiple dates.. current with Dr. Naik, last IP [facility] 2003 Response to Treatment The patient states that despite his [place] level being therapeutic that he does not feel that it is helping. Precipitating Factors: Unclear Current Silviculture Forester: Dr. Gum[place], [place] Treatment of Prior Episodes: [facility] Diagnosis: Bipolar Disorder Psychodynamic Issues: The patient states that he had a very difficult childhood, given that he was raised in [place] and his mother was [place]. Risk Factors: chronic/serious med cond., history of suicide atmpts, male Substance Use/Abuse History Drug Use/Abuse Substance Used/Abused Alcohol First Use unclear Last Used Last week How much used/taken unclear How often The pt. states he does not drink, but he did with pills in OD attempt For how long The patient states that he has been inrecovery until last week Route of use oral Have Had Periods of Sobriety? Yes Explain: The patient reports that he has been sober for many years and only drank 1 time during his suicide attempt last week. Relapse History? Yes Explain: The patient states that he drank 1 time during his suicide attempt last week. Have You Ever Attended AA? Yes Do You Attend AA Currently? Yes Do You Have a Sponsor? Yes Other Community Resources Used: None noted Symptoms of Use: N/A Substance Abuse Treatment Substance Abuse Treatment Inpatient Treatment Yes Outpatient Treatment Yes Location of Treatment [facility] Reason for Treatment Alcohol abuse and Bipolar disorder Dates of Treatment Multiple dates- last IP at [facility] 2004 Response to Treatment The patient states that he has been in recovery for many years and that he did drink last week when he attempted suicide. 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 of Jobs in Last 5 Years: 0 Comments: N/A History Have You Been in The ? No If Yes, Explain: N/A Type of Discharge: N/A Date of Discharge: N/A Current Mental Status Mental Status Orientation: Person, Place, Situation Affect: Anxious, Angry, Labile Speech: Loud (Varing) Neuro-vegetative: Anhedonia, Helpless, Sleep Disturbance, Hopeless Worthless Appearance Appearance- Dress/Hygiene: The patient was sitting in a chair, dressed in hosptial attire, with a blanket wrapped around his head, tearful. He was extremely labile and very expressive with body language while discussing his symptoms. Behaviors Thought Process: Loose Association, Tangential Thought Content: Obsessions, Paranoid (* slightly paranoid), The patient states that he has been having obsessive thoughts re: his cancer and . Memory: WNL Insight: Fair SI/HI Risk Assessment Past Suicidal Ideation/Attempts Yes Current Suicidal Ideation/Att Yes Past Homicidal Ideation/Att: No Current Homicidal Ideation/Attempts No (" but I hate correctional cook") Degree of Intent: The patient states that he does have + SI with a plan to slit his wrist, slit his jugular or suicide via carbon monoxide in his garage. He states that he did take an overdose last week while he was drinking. Danger To: Others, Self Gravely Disabled: N/A Risk Factors: Chronic/serious med cond, High Anxiety/Distress, SA/MH Hospitalization(s), Hx of suicide attempt(s), Poor impulse control Lethality Ratin - Conclusion and Recommendations for treatment - and discharge planning Summary: The patient presents with mood lability, decreased sleep, feeling helpless, feeling hopeless, feeling worthless and suicidal ideations. The patient recently attempted suicide and is currently planning to slit his wirst, slit his jugular or kill himself via carbon monoxide.
[2016-11-27 11:58] VITALS: BP 157/84
--- NOTE | 2016-11-27 14:25 | NUR ---
admitted on voluntary from ED for bipolar d/o with reported SA 2 days ago by taking 20?klonopin and drinking alcohol. Has been treated by outside psychiatrist and had a therapeutic level of lithium when checked in ED. Reports increasing anxiety specifically mentioning recent presidential election. Is hyperverbal and paronoid. Mood is stable, full range. A&Ox3, denies current SI and goes back and forth whether it was a SA or an accident.
[2016-11-27 16:03] VITALS: BP 144/83
--- NOTE | 2016-11-27 18:11 | History & Physical ---
General Information and HPI MD Statement: I have seen and personally examined ELOISE ARREAGA and documented this H&P. The patient is a 61 year old M who presented with a patient stated chief complaint of suicidal ideations and depression. Source of Information: patient Exam Limitations: no limitations History of Present Illness: 61-year-old male with history of depression and bipolar disorder as been having increasingly symptoms of depression since the diagnosis of prostate cancer last he drank a lot of alcohol and took 20 Klonopin tablets in an attempt to kill himself. He feels hopeless, helpless and worthless, depressed and anxious with sleeping disturbances and suicidal ideations due to all this symptoms and problems is admitted for evaluation and treatment. Allergies/Medications Allergies: Coded Allergies: NO KNOWN ALLERGIES (11/03/13) Home Med list Amlodipine Besylate 5 MG TABLET 5 MG PO DAILY hypertension (Reported) Atorvastatin Calcium 20 MG TABLET 20 MG PO DAILY@1700 HYPERLIPIDEMIA ( Reported) Clonazepam 0.5 MG TABLET 1 TAB PO 4XDP PRN ANXIETY (Reported) Lamotrigine 200 MG TABLET 1 TAB PO DAILY MENTAL HEALTH (Reported) [place] Carbonate 300 MG CAPSULE 4 CAP PO QPM MENTAL HEALTH (Reported) Prazosin HCl 1 MG CAPSULE 1 CAP PO QPM MENTAL HEALTH (Reported) Quetiapine Fumarate 300 MG TABLET 1 TAB PO QPM MENTAL HEALTH (Reported) Compliance With Home Meds: FAIR Past History Travel History Traveled to [place] past 21 day No Medical History Neurological: NONE EENT: NONE Cardiovascular: hypertension, hyperlipidemia Respiratory: obstructive sleep apnea Gastrointestinal: NONE Hepatic: NONE Renal: NONE Musculoskeletal: NONE Psychiatric: alcohol dependence, bipolar disease, depression Endocrine: hypothyroidism Blood Disorders: NONE Cancer(s): prostate cancer ADMISSIONS MANAGER RN/Reproductive: NONE History of MRSA: No History of VRE: No History of CDIFF: No Isolation History: Standard Influenza Vaccine: 07/28/16 Surgical History Surgical History: non-contributory Past Family/Social History Psychosocial History Where do you live? 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 Exam & Diagnostic Data Last 24 Hrs of Vital Signs/I&O Vital Signs Date Time Temp Pulse Resp B/P Pulse O2 O2 Flow FiO2 Ox Delivery Rate 11/27 1603 73 144/83 11/27 1158 97.0 70 157/84 11/27 1040 97.9 78 18 139/89 98 Room Air 11/27 0832 98.0 61 18 138/77 97 Room Air 11/27 0633 98.1 81 18 132/86 94 Room Air 11/27 0332 97.9 79 18 133/89 95 Room Air 11/27 0132 98.2 82 18 130/82 95 Room Air 11/26 2301 97.7 74 16 126/74 97 Room Air 11/26 2029 98.7 59 15 140/85 97 Room Air Intake & Output 11/27 1600 11/27 0800 11/27 0000 Intake Total Output Total Balance Patient 201 lb Weight Physical Exam General Appearance Alert, Oriented X3, Cooperative, No Acute Distress Skin No Rashes, No Breakdown HEENT Atraumatic, PERRLA, EOMI, Mucous Membr. moist/pink Neck Supple, No JVD, No thryomegaly, +2 Carotid Pulse wo Bruit Lymphatic Axillary nl, Cervical nl Cardiovascular Regular Rate Lungs Clear to Auscultation, Normal Air Movement Abdomen Normal Bowel Sounds, Soft, No Tenderness, No Hepatospenomegaly, No Masses Neurological Exam Findings: Normal Gait, Normal Speech, Strength at 5/5 X4 Ext, Normal Tone, Sensation Intact, Cranial Nerves 3-12 NL, Reflexes 2+ Cranial Nerves II through XII: Intact Extremities No Cyanosis, No Edema, Normal Pulses Last 24 Hrs of Labs/Charles: Laboratory Tests 11/26/16 1138: [place] 0.8, Serum Alcohol < 10.0 11/26/16 1138: Anion Gap 7, Estimated GFR > 60, BUN/Creatinine Ratio 8.9, Glucose 97, Calcium 10.3 H, Total Bilirubin 0.6, AST 25, ALT 37, Alkaline Phosphatase 67, Total Protein 7.0, Albumin 4.3, Globulin 2.7, Albumin/Globulin Ratio 1.6, TSH 1.610, Free T4 0.75 L, CBC w Diff NO MAN DIFF REQ, RBC 5.28, MCV 87.7, MCH 29.5, RDW 14.6 H, MPV 9.8, Gran % 81.4 H, Lymphocytes % 10.9 L, Monocytes % 5.6, Eosinophils % 1.8, Basophils % 0.3, Absolute Granulocytes 6.5, Absolute Lymphocytes 0.9 L, Absolute Monocytes 0.4, Absolute Eosinophils 0.1, Absolute Basophils 0, PUBS MCHC 33.6, Urine Opiates Screen < 100.00, Methadone Screen < 40, Barbiturate Screen < 60, Ur Phencyclidine Scrn < 6.00, Amphetamines Screen < 100, U Benzodiazepines Scrn < 85, Urine Cocaine Screen < 50, Urine Cannabis Screen < 5.00, Urinalysis LIGHT H, Urine Color YEL, Urine Clarity HAZY H, Urine pH 8.0, Ur Specific [place] 1.025, Urine Protein >=300 H, Urine Ketones NEG, Urine Nitrite NEG, Urine Bilirubin NEG, Urine Urobilinogen 1.0, Ur Leukocyte Esterase NEG, Ur Microscopic SEDIMENT EXAMINED, Urine RBC 1-3, Urine WBC 1-3 H, Ur Epithelial Cells FEW, Granular Casts FEW H, Urine Mucus FEW, Urine Hemoglobin TRACE-INTACT H, Urine Glucose NEG Assessment/Plan As Ranked By This Provider Problem List: 1. Depression Qualifiers Depression Type: unspecified Qualified Code: F32.9 - Major depressive disorder, single episode, unspecified Miscellaneous Miscellaneous Documentation Attending Case Discussed With: RAYMOND MCCRAY MD Primary Care Physician: KIRSTIN JOHNS MD Patient sees these Specialists Psychiatry Level of Patient Care: [facility] Consults Needed: Consulting Specialty: Psychiatry Consulting Physician: Raymond Mccray MD Reason for Consult: suicidal ideations and increased depression
[2016-11-27 19:50] VITALS: BP 144/54
[2016-11-28 07:56] VITALS: BP 122/65
--- NOTE | 2016-11-28 10:55 | SOCIAL WORKER PROG NOTE PSYCH ---
Social Work Progress Note Progress Note SW met with patient for the first time today. Patient presented pleasant and calm. He denied any thoughts of SI today and reported mild depression. Patient reported that his major concern is finding a psychiatrist in the local area. Patient reports that he has been going to a private psychiatrist in [place], [place] for the past 20 years. Patient states that he would like to start seeing someone closer in his local area and is also open to starting therapy. 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 Patient reports that now he wishes for his life to be simpler with less stress. Patient acknowledges his recent suicide attempt of taking klonopin and drinking alcohol. He reports "this was a stupid idea, I don't know why I did it. I don't want to ." Patient was open to the idea of having a family meeting with his who he resides with.
--- NOTE | 2016-11-28 10:57 | SOCIAL WORKER TX PLAN PSYCH ---
Treatment Plan - Please Document: - Evidence that there is ongoing collaboration between - the patient and the interdisciplinary team, - including the patient's active participation and - responsibility for engaging in the treatment regimen, - and that the treatment plan is individualized and - relevant to the patient's conditions. - Treatment plan should reflect documentation indicating - that all active therapeutic efforts are included. 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 The patient does own his own home and has insight into his need for treatment. Physical Limitations (Interventions): None noted Patient Identified Trmt Goals: " I want to feel better about my life." Discharge Plan: IOP Problem/Goals #1 Problem #1: suicidal ideation Goal (Short Term): Today I will attend 3 groups Today I will identify 2 stressors Today I will identify 2 positive supports Today I will work on recognizing 3 emotions I am feeling Goal (Chcf): Be free of suicidal thoughts/attempts Develop 3 coping skills to deal with depression Identify 3 positive support systems to call in crisis Develop a crisis plan with 3 valentine people Identify 2 positive traits per week about myself Identify 2 things I have to look forward to Identify 2 positive people in my life and 1 thing I appreciate about them Interventions: Learn ways to manage depressive symptoms accordingly and identify positive supports to manage life stressors and mood fluctuations. Modalities: Encourage groups, education on depression, provide CBT treatment, family meeting. DSM5/PS Stressors/Medical Prob Diagnosis' (DSM 5, Stressors, Medical): F31.9 Unspecified Bipolar Disorder and F10.10 Alcohol Use Disorder ( pt. reports recent relapse when he attempted suicide). Medical: Hypothyroidism, hypertension, hx. of Prostate Cancer. Stressors: Chronic Mental health issues and chronic medical issues. Current GAF: 25 Treatment Team - Responsibilities of members of the treatment team include: - Medication Management- MD or PREPRESS PROOFER - Medication Administration and Monitoring- Nurse - Group Therapy- Occupational Therapist - 1:1 Therapy,Disch Planning,family involvement-Insect Control Aide
--- NOTE | 2016-11-28 11:23 | CPS MD/APRN INITIAL ASSE PSYCH ---
Psychiatric Admission Aviation Ordnance Officer's Note Reviewed: Yes Patient Seen and Examined: Yes Identifying Information: Patient is a 61 y/o, , , Adventism male. Chief Complaint: "I was stupid and took a bunch of Klonopin and Tequila." Reaction to Hospitalization: "I feel more calm. I want help." History of Present Illness Onset of Illness: Patient is a 61-year old male with a longstanding history of Bipolar disorder and suicidal ideation. Presented to ED with mood lability, anxiety and depression. In ED Crisis eval, it was noted that he expressed multiple suicide plans (i.e. slitting his wrists, cutting his jugular, and carbon monoxide poisoning). Reported last week overdosing on a bunch of Klonopin and alcohol. Also, paranoia was noted around police. Today, on encounter, patient confirmed the above reports, however denied expressing suicide plans in ED, or endorsing present suicidal ideation, plans and intent. He denied a history of suicide attempts. He denied paranoid ideation , delusions, auditory and visual hallucinations. Reported stressors of turning 61 years old in May 2016, chronic stress over diagnosis of prostate cancer, anger toward the outcome of presidential election secondary to being a minority, insomnia, increased anxiety, recent relapse on alcohol last week which he denied was a suicide attempt despite combined use with Klonopin. Reported overdose was an attempt to relieve anxiety, and not an attempt to end his life. Circumstances Leading to Admission: Outcome of presidential election Turning 61 years old ? paranoia towards law enforcement Chronic anxiety secondary to diagnosis of Prostate CA in 2013 Sleep distrubances Worsening depression/anxiety Relapse on alcohol (had been sober since 2003) Problem(s) Justifying Need for Admission: + SI, ? paranoia Past Psychiatric History Past Diagnosis(es)- if any: Unspecified Bipolar Disorder Alcohol use disorder (recent relapse) Per patient: Hypothyroidism Hypertension Hx Prostate Cancer Past Precipitating Factors- if any: Unknown - Include inpatient and outpatient treatment Treatment History: Prior inpatient hospitalizations at [facility] ([facility]). Current outpatient with Dr. Naik History of Suicide Attempts or Gestures Patient denied, despite Crisis eval stating prior suicide attempts. Substance Abuse History: Alcohol - had been sober since 2003 until last week after relapse on 1 L Tequila. Reported this to be a single event. BAL (-) in ED. Tobacco - patient reported sporadic cigarette use. Could not report CARINE. Was agreeable to nicotine cessation medication. Denied use of illicit substances. Allergies: Coded Allergies: NO KNOWN ALLERGIES (11/03/13) Home Med List: Verified by [facility]: Klonopin 0.5mg QID PRN Lamictal 200mg QD Seroquel 300mg QHS Prasozin 1mg QHS [place] 600mg BID Lipitor 20mg QD Lisinopril 20mg QD - filled in January 2015 (pt reports taking at home) Norvasc 5mg QD - filled in January 2015 (pt reports taking at home) Patient reported being on Synthroid, however there was no record of medication at [facility]. - Include any medical condition(s) that may - impact the patient's recovery/remission Past Medical History: High Cholesterol HTN Hx Prostate CA Hypothyroidism Past History Medical History Neurological: NONE EENT: NONE Cardiovascular: hypertension, hyperlipidemia Respiratory: obstructive sleep apnea Gastrointestinal: NONE Hepatic: NONE Renal: NONE Musculoskeletal: NONE Psychiatric: alcohol dependence, bipolar disease, depression Endocrine: hypothyroidism Blood Disorders: NONE Cancer(s): prostate cancer INVASIVE CARDIOVASCULAR TECHNOLOGIST/Reproductive: NONE History of MRSA: No History of VRE: No History of CDIFF: No Isolation History: Standard Influenza Vaccine: 07/28/16 Surgical History Surgical History: Surgery for his Prostate Cancer Psychiatric Family/Social Hx Family History Psychiatric Illness: Maternal cousin - schizophrenia Maternal cousin - Bipolar disorder *2 Maternal uncles - commited suicide by hanging and drowning. Substance Use: Alcohol use disorder and cannabis use disorder on patrenal and maternal sides. Suicides: *2 Maternal uncles - commited suicide by hanging and drowning. Social History Living Situation: Patient lives in [place] with his 23 y/o son and Significant Relationships (family/friends): Identifies his , and adult son and daughter as positive supports. Education: Master's degree in social work Vocation/Occupation: Retired [employer] for 30 + years. Legal: DUI in 1997. Healthly Behaviors Screening Tobacco Screening Tobacco Use from ED Docu: Current Daily Use Daily Tobacco Use Amount/Type: => 5 Cigarettes daily - If tobacco counseling indicated - the following topics are required. - #1 Recognizing dangerous situations. - #2 Coping Skills. - #3 Basic information about quitting. Status of Tobacco Cessation Counseling: #1, #2 AND #3 Completed Cessation Med Status: Nicotine Patch Ordered Alcohol Screening - ETOH screen POS if BAL >=80 or Audit-C>= M4/F3 Audit-C Score from Diag Assess: 2 Blood Alcohol Level: Laboratory Tests 11/26 113 Toxicology Serum Alcohol (<10 MG/DL) < 10.0 Alcohol Use Screening Results: Neg per Audit C &/or BAL - If ETOH counseling indicated - the following topics are required. - #1 Express concern about the patient's - drinking at unhealthy levels, include informing - of national norms for moderate drinking: - men <= 14 drinks/week, max 4 drinks/occasion - women <= 7 drinks/week, max 3 drinks/occasion - #2 Providing feedback, including linking alcohol to - negative physical effects (liver injury, hypertension) - negative emotional effects (relationship problems and - depression) - negative occupational consequences (reduced work - performance) - #3 Advising the patient to abstain from alcohol or - to drink below national norms for moderate drinking - (as listed above). Status of ETOH Use Counseling: #1, #2 AND #3 Completed. Metabolic Screening - Screen if on a Neuroleptic Medication - Metabolic screening should include: - Blood Pressure, BMI, Glucose or Hgb A1c, & a - Lipid profile from within the past 365 days. Metabolic Screening () Not Applicable, patient not on a neuroleptic. OR ([X]) Patient on a neuroleptic(s) . Enter below results for Glucose or Hemoglobin A1C, and lipid panel if obtained during the last 365 days. BMI: 28.000 Blood Pressure: 122/65 Laboratory Results (If applicable): Lab Cholesterol 160 MG/DL 11/26/16 1138 Cholesterol/HDL Ratio 4 % 11/26/16 1138 Glucose 97 mg/dL 11/26/16 1138 HDL Cholesterol 42 mg/dL 11/26/16 1138 LDL Cholesterol, Calc 87 mg/dL 11/26/16 1138 Triglycerides 155 mg/dL H 11/26/16 1138 Exam and Plan Mental Status Examination Ambulation Status: Steady and independent Appearance: male, tall, obese, wears glasses, bald, mustache, wears multiple rings, watch, and cancer support bracelet. Dressed in blue paper scrubs. Attitude towards examiner: Cooperative, easily engaged in conversation. Psychomotor activity: WNL Behavior: Animated, many hand gestures while speaking. Quality of speech: Hyperverbal, circumstantial. Affect: Labile, spontaneously tearful and expansive. Mood: "Anxious" Suicidal Ideation: Pt denied Homicidal Ideation: Pt denied Hallucinations: Pt denied Paranoid/Delusional Material: None evident Difficulties with thought organization: None evdient Insight: Fair Judgment: Fair Orientation: A&O to person, place, time. Cognition: Grossly intact Memory Function: Grossly intact. Estimate of intellectual functioning: Above average Assets/Strengths Patient Identified Assets/Strengths: Supportive family, well-educated, motivated for treatment Impression/Plan Impression and Plan: Patient is a 61-year old male with a history of Bipolar disorder and anxiety, who recently relapsed on alcohol last week after 13 years sobriety in combination with prescription Klonopin in an overdose attempt. Unclear if OD was a suicide attempt, as patient denied this on encounter, but conversely reported to monotype setter as being a suicide attempt. In treatment with Dr. Naik in [place], [place] x 20 years. Adherent with outpatient psych meds. Ingestion of Klonopin and Alcohol was in the context of mutliple psychosocial stressors, including increased anxiety surrounding diagnosis of Prostate CA, recent outcome of presidential election secondary to being a minority, turning 61 years old and difficulty coping with this, and poor alliance with outpatient psychiatrist despite 20 year tx history. Will monitor patient on unit for safety and mood stabilization. Collateral will be needed from family and psychiatrist for clarification of symptom onset and duration. Patient agreeable to increasing Seroquel for further mood stabilization. Reveiwed the risk/benefit/SE profiles of Seroquel, patient verbalized understanding of education. Will increase Seroquel from 300mg to 400mg at HS for insomnia/mood stabilzation, and add 50mg QAM for anxiety/mood stabilization, with plan to increase QAM dose if tolerated over hospital course. If patient does not respond to Seroquel, will consider switch to Zyprexa for further mood stabilzation. - Include all active medical diagnosis that require tx DSM 5 Diagnosis(es): Bipolar Disorder Unspecified anxiety Disorder Alcohol use disorder (recent relapse x 1 week ago, after 13 yrs sobriety) - Initial Tx Plan for Active Psych & Medical Conditions Treatment Plan: 1. Monitor the patient on unit for safety, mood, suicidal ideation, and ? paranoia. 2. Obtain collateral from outpatient psychiatrist, and family. 3. Repeat TSH with reflex given low free T4, and reported history of hypothyroidism. [facility] reported no prior rxs for Synthroid on file. If TSH reflex results abnormal will consult endocrinology for further management. 4. Will continue Norvasc 5mg QD and monitor patient BP over hospital course. [facility] pharmacy had Lisinopril 20mg on file, but last filled in January 2015. Will not restart now, given stable BP. If BP trends up, will consult recreational vehicle resort manager for further management. 5. Increase Seroquel to 400mg QHS for insomnia/mood stabilization. Will add 50mg Seroquel QAM for anxiety, with plan to uptitrate as tolerated. If no response on increased Seroquel, will consider switch to Zyprexa for further mood stabilization. 6. Continue Prazosin for nightmares, [place] for mood stabilization, Lamictal for mood stabilization, and Lipitor for high cholesterol. 7. Admission H&P per recreational vehicle resort manager team. 8. Once psychiatric symptoms stabilize, will refer to IOP level of care. - Factors that would help patient function - in a less restrictive setting. Factors: Alleviation of SI. Mood stabilization. Referral to IOP level of care post- discharge.
--- NOTE | 2016-11-28 11:50 | NUR ---
PT IS PRESENT ON THE UNIT AND THUS FAR INTERACTING APPROPRIATELY WITH PEERS AND STAFF, SOCIAL, NO ISSUES REPORTED OR OBSERVED, MOOD STABLE WITH FULL RANGE AFFECT, ATTENDING GROUPS, ONLY OFFERING SUPERFICIAL COMPLAINT E.G., PILLOW TOO FLAT, ROOM TOO COLD, SLEPT WELL, LOOKING FORWARD TO SPEAKING WITH PROVIDER TODAY.
[2016-11-28 13:27] VITALS: BP 129/79
[2016-11-28 16:07] VITALS: BP 122/77
[2016-11-28 19:38] VITALS: BP 131/79
--- NOTE | 2016-11-28 22:08 | NUR ---
PT IS CALM, COOPERATIVE WITH STAFF AND PEERS, AND COMPLIANT WITH UNIT RULES. PT IS IN [place], INTERACTING WELL WITH OTHERS. PT MOOD IS STABLE, AFFECT IS FULL RANGE, COMMUNICATION IS NORMAL, AND APPETITE IS NORMAL. PT DENIES SI AT THIS TIME.
[2016-11-29 07:45] VITALS: BP 109/68
--- NOTE | 2016-11-29 08:35 | CP SOUTH PROGRESS NOTE PSYCH ---
Psych (Inpt) Progress Note Progress Note Include the following elements, when applicable: Involvement in the active treatment of the patient with behavioral observations of the patient and the patient's response to the treatment. Review of the ongoing treatment process in the context of the treatment plan. Indication of how multi-disciplinary staff members are carrying out the treatment plan. Plans for future interventions and recommendations for revision of the treatment plan. Liaison with other physicians/providers. Progress Note: [I discussed this patient's progress to date, current mental status, treatment process in the context of the treatment plan, and discharge planning with staff/ team in the daily morning inpatient team meeting. I also met with the patient myself in individual session.] SUBJECTIVE: "When can I go home?" OBJECTIVE: Current Medications Sig/Genoveva Start time Last Medication Dose Route Stop Time Status Admin Acetaminophen 650 MG Q6P PRN 11/27 1145 AC PO Al Hydroxide/Mg 30 ML Q4-6 PRN PRN 11/27 1145 AC Hydroxide PO Amlodipine Besylate 5 MG DAILY 11/28 1000 AC 11/28 PO 0747 Atorvastatin Calcium 20 MG DAILY@1700 11/27 1700 AC 11/28 PO 1804 Clonazepam 0.5 MG Q6P PRN 11/27 1045 AC PO 12/04 1044 Gabapentin 300 MG Q6P PRN 11/27 1200 AC PO Lamotrigine 200 MG DAILY 11/27 1030 AC 11/28 PO 0746 [place] Carbonate 600 MG BID 11/27 1045 AC 11/28 PO 2152 Magnesium Hydroxide 30 ML AT BEDTIME PRN 11/27 1145 AC PO Nicotine 7 MG 0800 11/28 1315 AC 11/28 TOP 1507 Prazosin HCl 1 MG QPM 11/27 2200 AC 11/28 PO 2152 Quetiapine Fumarate 400 MG 2200 11/28 2200 AC 11/28 PO 2152 Quetiapine Fumarate 50 MG 0800 11/28 1230 AC 11/28 PO 1259 Quetiapine Fumarate 300 MG AT BEDTIME 11/27 2200 DC 11/27 PO 2159 Trazodone HCl 50 MG AT BEDTIME NEED.. 11/27 1200 AC 11/27 PO 2201 Vital Signs Date Time Temp Pulse Resp B/P Pulse O2 O2 Flow FiO2 Ox Delivery Rate 11/29 0745 97.1 82 109/68 11/28 215 80 131/79 11/28 1938 97.6 80 131/79 11/28 1607 89 122/77 11/28 1327 81 129/79 Laboratory Tests 11/29/16 0620: TSH &T3 &Free T4 Intrp 4.050 ASSESSMENT: Met with patient, his , and Cindi Julio LCSW for a family meeting today. Patient's treatment progress, medication regimen, level of safety and discharge planning were reviewed. Patient's expressed concerns over patient's compulsive and impulsive behaviors "he doesn't think things through", low frustration tolerance, preoccupation with certain tasks, and previous overuse of Klonopin. Patient's expressed that his overuse of Klonopin was a factor in recent relapse on alcohol. Patient was agreeable to discontinuing Klonopin while in hospital, and has not been using prn Klonopin that had been ordered. VSS, no evidence of subjective/objective signs of BZD withdrawal. Agreed to discontinue medication and to discharge plan to follow-up with IOP. Met with patient individually today, he presented A&Ox3. Affect moderately labile. Behavior was animated, with many hand gestures. Speech was loud and hyperverbal. Patient perseverated on a select patient who he felt was very intrusive toward him. Patient reminded to keep appropriate boundaries and to notify nursing, if unable to appropriately cope. Patient was agreeable to this and verbalized understanding. Patient perseverated on relationship with former outpatient psychiatrist who he felt did not listen to his concerns related to prescribed medications. Patient required verbal prompting to stay on track of conversation. He reported + racing thoughts, but could not elaborate on them. He reported anxiety of 8/10 (10 being the worst) and depression of 4/10 (10 being the worst). He denied feeling hopeless, helpless, worthless, and guilty. He reported most of his anxiety is related to his dx of prostate CA, and uncertainty of whether it will ever be fully treated. Encouraged patient to utilize coping skills as a source of distraction, and to participate in milieu groups to process his feelings. Patient denied active/passive suicidal ideation, plans and intent. He denied homicidal ideation. There was no evidence of paranoia or delusions. He denied auditory and visual hallucinations. Thought process was circumstantial. Thought content was mostly appropriate. Cognition was grossly intact. Reported sleep and appetite were fair. Patient reported tolerating medications well and denied untoward medication effects. Patient agreeable to increase Seroquel from 50mg QAM to 100mg QAM for further mood stabilization. Will continue Seroquel 400mg QHS. No evidence of movement disorder. Patient informed of rpt Li level scheduled tomorrow morning, and agreeable. PLAN: 1. Monitor patient on unit for safety and mood. 2. Rpt Li level scheduled tomorrow morning at 0600. 3. Increase Seroquel to 100mg QAM for mood stabilization. Continue 400mg QHS for mood stabilization/insomnia. 4. Likely discharge on Saturday with f/u to [facility].
--- NOTE | 2016-11-29 11:22 | NUR ---
PTS AFFECT IS BRIGHT AND HE IS CALM AND COOPERATIVE WITH STAFF AND HIS PEERS. PT STATED HIS GOAL WAS TO TAKE ONE DAY AT A TIME AND TO SOCIALIZE WITH HIS PEERS. HE DENIED ANY SUICIAL THOUGHTS AND IS CONCERNED THAT HE NOT GAIN WEIGHT ON HIS INCREASE IN SEROQUEL
[2016-11-29 12:25] VITALS: BP 130/78
--- NOTE | 2016-11-29 14:55 | SOCIAL WORKER PROG NOTE PSYCH ---
Social Work Progress Note Progress Note Patient had family meeting today with his Lydia, this financial writer and Manju Carlson APRN. Patients expressed concern over patient acting "compulsive". She reported that patient becomes fixated on something and feels the need to act on it right there and then. It appeared she was describing patients impulsivity and difficulty thinking thigns through before acting. Patient agreed with wifes statement. Patient and expressed concern over his previous klonopin use. It appears patient was abusing his klonopin prescription regularly, specifically right after meeting with his prescriber. Patient agreed that his klonopin use was out of control and led to his relapse of alcohol. Patient reports that he no longer wishes to be prescribed klonopin and has not been taking it since entering the hospital. Patients is in support of this plan as well. Patient currently is denying SI but does report some depression along with anxiety. Patient stressed his desire to start treatment locally and is interested in IOP at . Patients is in agreement with this plan as well and patient will be scheduled for intake upon discharge from hospital.
[2016-11-29 16:04] VITALS: BP 114/65
[2016-11-29 20:08] VITALS: BP 153/81
--- NOTE | 2016-11-29 21:38 | NUR ---
PT IS VISIBLE ON UNIT, VERY SOCIAL WITH PEERS AND STAFF. ATTENDED WRAP UP MEETING AND AA. COOPERATIVE AND COMPLIANT. NO COMPLAINTS OR SI REPORTED. PT HAS A STABLE MOOD AND BRIGHT AFFECT.
--- NOTE | 2016-11-30 03:34 | NUR ---
PT. SLEPT WELL THIS SHIFT.
[2016-11-30 07:40] VITALS: BP 128/83
--- NOTE | 2016-11-30 08:03 | CP SOUTH PROGRESS NOTE PSYCH ---
Psych (Inpt) Progress Note Progress Note Include the following elements, when applicable: Involvement in the active treatment of the patient with behavioral observations of the patient and the patient's response to the treatment. Review of the ongoing treatment process in the context of the treatment plan. Indication of how multi-disciplinary staff members are carrying out the treatment plan. Plans for future interventions and recommendations for revision of the treatment plan. Liaison with other physicians/providers. Progress Note: [I discussed this patient's progress to date, current mental status, treatment process in the context of the treatment plan, and discharge planning with staff/ team in the daily morning inpatient team meeting. I also met with the patient myself in individual session.] SUBJECTIVE: "A patient has been very bothersome to me." OBJECTIVE: Current Medications Sig/Genoveva Start time Last Medication Dose Route Stop Time Status Admin Acetaminophen 650 MG Q6P PRN 11/27 1145 AC PO Al Hydroxide/Mg 30 ML Q4-6 PRN PRN 11/27 1145 AC Hydroxide PO Amlodipine Besylate 5 MG DAILY 11/28 1000 AC 11/29 PO 0833 Atorvastatin Calcium 20 MG DAILY@1700 11/27 1700 AC 11/29 PO 1754 Clonazepam 0.5 MG Q6P PRN 11/27 1045 DC PO 12/04 1044 Gabapentin 300 MG Q6P PRN 11/27 1200 AC PO Lamotrigine 200 MG DAILY 11/27 1030 AC 11/29 PO 0833 [place] Carbonate 600 MG BID 11/27 1045 AC 11/29 PO 2203 Magnesium Hydroxide 30 ML AT BEDTIME PRN 11/27 1145 AC PO Nicotine 7 MG 0800 11/28 1315 AC 11/29 TOP 0832 Prazosin HCl 1 MG QPM 11/27 2200 AC 11/29 PO 2203 Quetiapine Fumarate 100 MG 0800 11/30 0800 AC PO Quetiapine Fumarate 400 MG 2200 11/28 2200 AC 11/29 PO 2203 Quetiapine Fumarate 50 MG 0800 11/28 1230 DC 11/29 PO 0833 Trazodone HCl 50 MG AT BEDTIME NEED.. 11/27 1200 AC 11/27 PO 2201 Vital Signs Date Time Temp Pulse Resp B/P Pulse O2 O2 Flow FiO2 Ox Delivery Rate 11/30 739 96.2 72 128/83 11/29 2202 98.4 82 18 153/81 11/29 2007 98.4 82 153/81 11/29 1604 75 114/65 11/29 1225 72 130/78 11/29 0833 97.1 82 18 109/68 Laboratory Tests 11/30 0630 Toxicology [place] (0.6 - 1.2 mmol/L) 0.6 ASSESSMENT: Chart, progress notes, VS, labs, and medication list reviewed. On encounter today, patient presented A&Ox3. Reported his mood as "fine." Affect was expansive. Speech remained loud, less hyperverbal than on previous encounters. Eye contact was appropriate. Thought process appeared less circumstantial, however patient perseverated on a select patient who continues to be intrusive with him. Patient reminded to keep space away from this patient, and to utilize nursing and primary team to process appropriate ways to cope. Patient reported coping by reading and attending milieu groups. He remains open to pursuing IOP level of care post-discharge, but voiced concerns about potential copays associated to treatment. HAND II BLOCKER confirmed with [facility], who verified patient has no copays for IOP treatment. Patient denied passive and active suicidal ideation, plans and intent. Denied homicidal ideation. He reported anxiety of 5/10 (10 being the worst) and depression of 3/10 (10 being worst). Patient denied feeling hopeless, helpless, worthless, and guilty. He denied auditory and visual hallucinations. Reported appetite as good and sleep as good. Patient reported tolerating medications well and denied untoward medication effects. He was agreeable to increase [place] from 600mg BID to 600mg QAM/750mg QHS for mood stabilization. PLAN: 1. Increase [place] from 600mg BID to 600mg QAM and 750mg QHS for mood stabilization. [place] level scheduled on 12/03/16 at 0600. 2. Continue Seroquel 100mg QAM and 400mg QHS for mood stabilization. 3. Continue monitoring patient on unit for safety and mood. 4. Discharge likely on 12/03/16, with IOP follow-up.
--- NOTE | 2016-11-30 10:05 | SOCIAL WORKER PROG NOTE PSYCH ---
See Addendum Social Work Progress Note Progress Note Met with Bassam this morning, he reports having no SI/HI, no psychosis. He was very talkative, and was tearful about the of his Father in 2000. He spoke about how close he was to him and how he remembers his generosity towards others , and how he spent so much time with him. He spoke about how he is willing to go to [facility], concerned about the copay. Transfer faxed to [facility] today. Spoke with Romelia in [facility], he has no copay for [facility]. Apparently, his outpatient copay is $15. Bassam discussed how he wants to consider OPS after completion of IOP. He doesn't want to drive far to Dr. Gr in [facility].
--- NOTE | 2016-11-30 10:40 | IP INCIDENTAL NOTE PSYCH ---
Incidental Note Notation: left for outpatient psychiatrist Dr. Gumaro Vu (#[phone]) to obtain clinical collateral. Per office staff, currently out of office until 11/02/16.
--- NOTE | 2016-11-30 11:50 | NUR ---
PT HAS BEEN VISIBLE IN THE MILIEU TODAY. HE MADE THE GOAL IN PLANNING MEETING TO "TAKE ONE STEP AT A TIME", STATING THAT HE NEVER KNOWS WHAT WILL HAPPEN SO TAKING THINGS THEY COME. PT HAS BEEN ATTENDING GROUPS, INTERACTING WITH PEERS AND STAFF ALIKE. PT IS PLEASANT, CALM AND COOPERATIVE WITH STAFF DIRECTION. WHEN ASKED PT DENIES THOUGHTS OF HURTING SELF.
[2016-11-30 12:25] VITALS: BP 130/86
[2016-11-30 15:55] VITALS: BP 159/78
[2016-11-30 19:45] VITALS: BP 140/79
--- NOTE | 2016-11-30 21:53 | NUR ---
Pt is out in the community mood is stable pt affect is full range. Pt interacts appropriately with his peers and staff. Pt is compliant and cooperative with the staff. Vital signs are stable appetite is good. Will continue to monitor the pt overnight.
[2016-12-01 07:30] VITALS: BP 126/84
[2016-12-01 12:16] VITALS: BP 126/89
--- NOTE | 2016-12-01 13:52 | NUR ---
Pt is present on the unit, no issues or complaints reported or observed, pleasant, social, less pressured/hyperverbal/intrusive, mood stable with full range affect, not attending groups consistently, medication complaint.
--- NOTE | 2016-12-01 14:56 | CP SOUTH PROGRESS NOTE PSYCH ---
Psych (Inpt) Progress Note Progress Note Include the following elements, when applicable: Involvement in the active treatment of the patient with behavioral observations of the patient and the patient's response to the treatment. Review of the ongoing treatment process in the context of the treatment plan. Indication of how multi-disciplinary staff members are carrying out the treatment plan. Plans for future interventions and recommendations for revision of the treatment plan. Liaison with other physicians/providers. Progress Note: Stated that he is very cold in his room; that he requests blankets and cant sleep well; states that he is warmer in the day room and elsewhere in the unit. 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 Plans on going to IOP and wants to seek a bereavement group if IOP is not sufficient to discuss of his father over 10 years ago, explains that they were very close and that he has yet to grieve sufficiently for him. Stated that he also wants to return to playing instruments. Looking forward to discharge. MSE: middle aged man, pleasant and cooperative. No movement d/o or tics noted. Adequate eye contact. Affect full and mood good. Speech wnl, accented. Thought process logical, but at times tangential. No thought content abnormalities noted. No evidence of thoughts to harm self/others. No evidence of hallucinations.Insight and judgment good. A: 61 y.o man w/ hx bipolar d/o, admitted anxious, depressed and w/ SI, improving clinically. P: Continue current plan of care. Provided supportive psychotherapy regarding loss of father and prostate ca. Future oriented and wants to move forward to outpatient tx.
[2016-12-01 15:40] VITALS: BP 134/77
[2016-12-01 19:15] VITALS: BP 150/79
--- NOTE | 2016-12-01 20:12 | NUR ---
PT IS STABLE WITH FULL RANGE OF AFFECT. LESS HYPERVERBAL THAN IN THE PAST. IN THE LOUNGE WATCHING A MOVIE AND INTERACTING WITH PEERS/STAFF. NOT LOUD, PRESSURED OR RAPID IN THE PAST. VS ARE STABLE AND DENIES ANY SI/HI TO THIS MHW.
--- NOTE | 2016-12-02 04:41 | NUR ---
SLEPT UNTIL 0430.
[2016-12-02 07:46] VITALS: BP 135/78
[2016-12-02 12:12] VITALS: BP 128/58
--- NOTE | 2016-12-02 13:17 | NUR ---
PT IS OUT IN COMMUNITY INTERACTING WITH STAFF AND PEERS. PT IS COMPLIANT AND COOPERATIVE. PT MOOD IS STABLE WITH A CONSTRICTED AFFECT. PT GOAL THIS MORNING WAS TO SHAVE WHICH HE DID. PT WAS A LITTLE UPSET THAT HE SAID HE WAS ASKING FOR A FEW DAYS TO SHAVE BUT IT SEEMED LIKE NO ONE WAS LISTENING. HE SAID HE UNDERSTANDS THAT SOMETIMES STAFF IS BUSY. PT IS ACTIVE IN GROUPS. PT DENIES PURVI AMATO
--- NOTE | 2016-12-02 15:02 | CP SOUTH PROGRESS NOTE PSYCH ---
Psych (Inpt) Progress Note Progress Note Include the following elements, when applicable: Involvement in the active treatment of the patient with behavioral observations of the patient and the patient's response to the treatment. Review of the ongoing treatment process in the context of the treatment plan. Indication of how multi-disciplinary staff members are carrying out the treatment plan. Plans for future interventions and recommendations for revision of the treatment plan. Liaison with other physicians/providers. Progress Note: Stated that he has some concerns about lithium, we discussed risks and benefirts of group home use of lithium renal risks, weighr gain, risk of DI; compared to risk of untreated casa losing money, relationships, compulsive spending, and the outcome of manic episode; he appeared interested and engaged. Stated that he continues to have low mood when it is dark; we discussed behavioral activation, light therapy (when he is not manic) in the future; exercise. Family is in town and he is looking forward to seeing his granddaughter. Per staff he appears mildly paranoid at times we were discussing his distrust of police, which appeared reasonable, but did not show overt paranoia to me, more so tangentiality. MSE: middle aged man, pleasant and cooperative. Good eye contact and well related. No movement d/o or tics noted. Affect full and mood is good to euphoric at times. Speech wnl, accented. Thought process is tangential. No evidence of gross paranoia or other delusions elicited. Denied thoughts to harm self/others. No evidence of hallucinations.Insight and judgment good. A: 61 y.o man w/ hx bipolar d/o, admitted anxious, depressed and w/ SI, improving clinically. P: Continue current plan of care. Discussed behavioral activation for mood improvement; risks/benefits of lithium compared to other meds; and structured activities to maintain his routine after discharge.
[2016-12-02 15:41] VITALS: BP 133/95
[2016-12-02 19:45] VITALS: BP 149/90
--- NOTE | 2016-12-02 21:45 | NUR ---
PT IS CALM, COOPERATIVE WITH STAFF AND PEERS, AND COMPLIANT WITH UNIT RULES. PT IS IN MILIEU AT TIMES, THOUGH SPENDING THE MAJORITY OF TIME OUT OF POPULATION AN IN PT ROOM. PT MOOD IS STABLE, AFFECT IS FULL RANGE, COMMUNCIATION IS NORMAL, AND APPETITE IS NORMAL. PT DENIES SI AT THIS TIME.
--- NOTE | 2016-12-03 07:04 | NUR ---
PATIENT AWAKE AT 0500, RETURNED TO SLEEP.
[2016-12-03 07:58] VITALS: BP 144/92
[2016-12-03 09:00] VITALS: BP 144/92
--- NOTE | 2016-12-03 09:03 | DISCHARGE SUMMARY REPORT-PSYCH ---
Visit Information Visit Dates/Diagnosis' Admission Date: 11/27/16 Discharge Date: 12/03/16 Reason for Admission: Suicidal ideation and attempt by overdose on Klonopin/alcohol. Psy Discharge Primary Diag: Unspecified Bipolar Disorder Psy Discharge Secondary Diag: Unspecified Anxiety Disorder; Alcohol use disorder ; HTN; High Cholesterol Hospital Course Significant Lab Findings: Lab Calcium 10.3 mg/dL H 11/26/16 1138 Free T4 0.75 ng/dL L 11/26/16 1138 TSH 1.610 uIU/mL 11/26/16 1138 TSH &T3 &Free T4 Intrp 4.050 uIU/mL 11/29/16 0620 Triglycerides 155 mg/dL H 11/26/16 1138 [place] 0.7 mmol/L 12/03/16 0646 Course Complications: None. Consultations: The patient was seen for history and physical by Dr. Gilberto Nazario. Please see his note for additional information. Allergies: Coded Allergies: NO KNOWN ALLERGIES (11/03/13) Hospital Course/TX Response: The patient was monitored on the unit for safety, suicidal ideation and mood disorder. He participated in multimodal treatments on the unit. Lamictal 200mg daily was continued for mood stabilization; Lipitor 20mg QD was continued for high cholesterol; Norvasc 5mg QD was continued for HTN. Seroquel was increased from 300mg QHS to 100mg QAM and 400mg QHS for mood stabilization, and [place] Carbonate was increased from 600mg BID to 600mg QAM and 750mg QPM for mood stabiilzation. Prazosin 1mg QHS was continued for nightmares/insomnia. Klonopin 1mg four times a day was initially restarted prn during the hospital course; the patient did not utilize this prn, or show subjective/objective signs of benzodiazepine withdrawal. Klonopin was therefore discontinued. During the hospital course, the patient's mood and affect improved. Suicidal ideation remitted. A family meeting was held with the patient, his , Cindi Julio LCSW, and this verse writer. The patient's reported her primary concerns were the patient's impulsive and compulsive behaviors and reported this worsened in the context of patient's alcohol and Klonopin overuse. The patient's confirmed that the patient did not have any prescription Klonopin left at home. The patient's did not express any acute concerns over the patient's level of safety when sober, and was agreeable to discharge plan to [facility] for further management of psychiatric symptoms and support in sobriety. On the date of discharge, 12/03/16, the patient presented A&Ox3, appeared calm and cooperative. Speech was more normal in rate, tone and volume; not pressured or hyperverbal. Eye contact was appropriate. He had no complaints. He reported depression of 1/10 (10 being the worst) and anxiety of 3/10 (10 being the worst) . He reported his mood as "good, much calmer." He reported having a good weekend , and reading the Big Book of AA. He appeared motivated to resume daily AA meetings for support in sobriety. He denied urges/cravings to drink alcohol. He denied passive and active suicidal ideation, plans and intent. He denied homicidal ideation. He stated and also believed he will not harm himself or others. He identified his "," "my kids" and "grandkids" as protective factors. He denied auditory and visual hallucinations. There was no evidence of emery delusions or paranoia. Thought process was linear and goal-directed. Thought content ws appropriate. He reported being grateful for the care he received during hospitalization. He reported tolerating all medications well and denied untoward medication effects. There was no evidence of movement disorder. AIMS=0. He reported his sleep was fair and appetite was good. He reported feeling safe and ready for discharge. Verified with [facility] that patient's insurance will only cover 90- day supply prescriptions. Spoke to patient's who is agreeable to keeping the patient's prescriptions locked in her possession post-discharge. Patient was also in favor of this plan. Discharge HBIPS - Tobacco Use Treatment Offered Post DC Medications Offered: Refused Tob Medication Tx Post DC Tobacco Treatment Plan: Refused Tobcco Tx Pgm - EtOH/Drug Use D/O Treatment Offered Post DC Medications Offered: Med Not Indicated for D/O Post DC EtOH/SubAbuse TX Plan: [facility] Program Appt Date: 12/03/16 Program Appt Time: 1115 Metabolic Screening - Screen if on a Neuroleptic Medication - Metabolic screening should include: - Blood Pressure, BMI, Glucose or Hgb A1c, & a - Lipid profile from within the past 365 days. Metabolic Screening () Not Applicable, patient not on a neuroleptic. OR ([X]) Patient on a neuroleptic(s) . Enter below results for Glucose or Hemoglobin A1C, and lipid panel if obtained during the last 365 days. BMI: 28.000 Blood Pressure: 144/92 Laboratory Results (If applicable): Lab Cholesterol 160 MG/DL 11/26/16 1138 Cholesterol/HDL Ratio 4 % 11/26/16 1138 Glucose 97 mg/dL 11/26/16 1138 HDL Cholesterol 42 mg/dL 11/26/16 1138 LDL Cholesterol, Calc 87 mg/dL 11/26/16 1138 Triglycerides 155 mg/dL H 11/26/16 1138 Discharge Instructions General Discharge Information Discharge Medications: Discharge Medications- (Dose, route, freq, indication): HOME MEDICATION LIST START taking these NEW Home Medications: Atorvastatin Calcium Dose: ORAL, DAILY@1700 for Qty: 90 Called in to Pharm 1 (Atorvastatin 20 Milligram high cholesterol Refills: 0 Calcium) 20 MG Last Taken:12/02/16 TABLET Time:5pm Prazosin Dose: ORAL, Every night for Qty: 90 Called in to Pharm 1 Hydrochloride 1 Milligram nightmares Refills: 0 (Minipress) 1 MG Last Taken:12/02/16 CAPSULE [id number] Amlodipine Besylate Dose: ORAL, DAILY for Qty: 90 Called in to Pharm 1 (Amlodipine 5 Milligram hypertension Refills: 0 Besylate) 5 MG Last Taken:12/03/16 TABLET Time:9am Lamotrigine Dose: ORAL, DAILY for mood Qty: 90 Called in to Pharm 1 (Lamictal) 100 MG 200 Milligram stabilization Refills: 0 TABLET Take 2 tablets (200mg) by mouth daily. Last Taken:12/03/16 Time:9am Quetiapine Fumarate Dose: ORAL, SEE INSTRUCTIONS Qty: 90 Called in to Pharm 1 (Seroquel) 100 MG 100 Milligram for mood stabilization Refills: 0 TABLET Take 1 tablet (100mg) by mouth every morning and 4 tablets (400mg) by mouth at bedtime. Last Taken:12/03/16 Time:9am [place] Carbonate Dose: ORAL, TWICE DAILY for Qty: 90 Called in to ([place] Carbonate) 600 Milligram mood stabilization Refills: 0 Pharm 1 300 MG CAPSULE Take 2 capsules (600mg) by mouth every morning and 2 capsules at bedtime. Last Taken:12/03/16 Time:9am [place] Carbonate Dose: ORAL, AT BEDTIME for Qty: 90 Called in to ([place] [facility]ate) 150 Milligram mood stabilization Refills: 0 Pharm 1 150 MG CAPSULE Take 1 capsule by mouth at bedtime. Last Taken:12/02/16 Time:10pm All discharge prescriptions were called into for; to (do) ([phone]), today. 90 day supplies for all above medications were provided, due to insurance coverage. The patient later called this verse writer post-discharge stating that [facility] would not fill prescriptions for Lamictal 200mg QD; Prazosin 1mg QHS; Lipitor 20mg QD, due to these prescriptions being filled on 11/15/16. This verse writer spoke to [facility] who verified this and stated that discharge prescriptions for [place] 600mg QAM/750mg QHS; Seroquel 100mg QAM/ 400mg QHS; and Norvasc 5mg QD would be filled and covered by his insurance. This verse writer called [facility] (C:[phone]/H:[phone]), who was informed of this information. [facility] also verified that he had 2 week supplies left of Lamictal 200mg QD; Prazosin 1mg QHS; Lipitor 20mg QD. This verse writer called [facility] and cancelled discharge prescriptions of Lamictal; Prazosin; Lipitor. Patient was informed that medications would be followed by [facility] prescriber for refills. Patient was advised to notify IOP prescriber prior to running out of prescription refills. Patient verbalized understanding of all instructions. STOP taking these DISCONTINUED Home Medications: Clonazepam (Clonazepam) 0.5 MG Dose: ORAL, 4 times daily as needed as TABLET 1 Tablet needed for ANXIETY Reason Stopped: Per Doctor Decision Multiple Neuroleptics: ([X]) Not Applicable OR Document below three failed attempts at monotherapy, or a plan to taper to monotherapy, or augmentation of Clozapine. () Patient's Diet: Regular. Patient's Activity: No restrictions. DC Disposition: Patient to return to home and . Recommendations: Patient was advised to please take medications as prescribed. He was advised to abstain from alcohol, attend AA daily and obtain a sponsor for support in sobriety. He was advised to follow-up with scheduled [facility] appointment. Patient was advised that his would keep this medications in her possession post-discharge, which he and his were agreeable to. He was advised that in the event of an emergency to call 911/go to nearest emergency department. Patient verbalized understanding of all instructions. Referred To: [facility] [address] [place] [address] (t)[phone] Intake scheduled on 12/03/16 at 11:15AM. Copies To: Dr. Gumaro Vu; [facility]
--- NOTE | 2016-12-03 09:10 | SOCIAL WORKER PROG NOTE PSYCH ---
Social Work Progress Note Progress Note Patient to discharge the hospital today. Patient denies SI/HI/AH/VH at present. Patient plans to return home with his in a safe and sober residence. Patient has agreed to follow up with IOP at and has intake today at 11:15am. Patient will engage in the dual program due to hx of alcohol and benzodiazepine abuse/dependence in addition to mental health. Patient reports desire to maintain sobriety from substances and is no longer on Klonopin prescription. Patient is able to contract for safety today.
--- NOTE | 2016-12-03 09:12 | CP SOUTH PROGRESS NOTE PSYCH ---
Psych (Inpt) Progress Note Progress Note Include the following elements, when applicable: Involvement in the active treatment of the patient with behavioral observations of the patient and the patient's response to the treatment. Review of the ongoing treatment process in the context of the treatment plan. Indication of how multi-disciplinary staff members are carrying out the treatment plan. Plans for future interventions and recommendations for revision of the treatment plan. Liaison with other physicians/providers. Progress Note: [I discussed this patient's progress to date, current mental status, treatment process in the context of the treatment plan, and discharge planning with staff/ team in the daily morning inpatient team meeting. I also met with the patient myself in individual session.] SUBJECTIVE: "I feel so much calmer." OBJECTIVE: Laboratory Tests 12/03 645 Toxicology [place] (0.6 - 1.2 mmol/L) 0.7 Current Medications Sig/Genoveva Start time Last Medication Dose Route Stop Time Status Admin Acetaminophen 650 MG Q6P PRN 11/27 1145 AC PO Al Hydroxide/Mg 30 ML Q4-6 PRN PRN 11/27 1145 AC Hydroxide PO Amlodipine Besylate 5 MG DAILY 11/28 1000 AC 12/03 PO 0900 Atorvastatin Calcium 20 MG DAILY@1700 11/27 1700 AC 12/02 PO 1752 Gabapentin 300 MG Q6P PRN 11/27 1200 AC PO Lamotrigine 200 MG DAILY 11/27 1030 AC 12/03 PO 0900 [place] Carbonate 600 MG 0800 12/01 0800 AC 12/03 PO 0900 [place] Carbonate 750 MG 2200 11/30 2200 AC 12/02 PO 2147 Magnesium Hydroxide 30 ML AT BEDTIME PRN 11/27 1145 AC PO Nicotine 7 MG 0811/28 1315 AC 12/03 TOP 0900 Prazosin HCl 1 MG QPM 11/27 2200 AC 12/02 PO 2147 Quetiapine Fumarate 100 MG 0800 11/30 0800 AC 12/03 PO 0900 Quetiapine Fumarate 400 MG 0 11/28 2200 AC 12/02 PO 2148 Trazodone HCl 50 MG AT BEDTIME NEED.. 11/27 1200 AC 11/27 PO 2201 Vital Signs Date Time Temp Pulse Resp B/P Pulse O2 O2 Flow FiO2 Ox Delivery Rate 12/03 899 97.4 92 18 144/92 12/03 0758 97.4 92 144/92 12/02 2147 74 149/90 12/02 1945 97.1 74 149/90 12/02 1541 86 133/95 12/02 1212 67 128/58 ASSESSMENT: Chart, progress notes, medication list, labs and VS reviewed. Met with the patient on the date of discharge, patient presented A&Ox3, appeared calm and cooperative. Speech was more normal in rate, tone and volume; not pressured or hyperverbal. Eye contact was appropriate. He had no complaints. He reported depression of 1/10 (10 being the worst) and anxiety of 3/10 (10 being the worst). He reported his mood as "good, much calmer." He reported having a good weekend, and reading the Big Book of AA. He appeared motivated to resume daily AA meetings for support in sobriety. He denied urges/cravings to drink alcohol. He denied passive and active suicidal ideation, plans and intent. He denied homicidal ideation. He stated and also believed he will not harm himself or others. He identified his "," "my kids" and "grandkids" as protective factors. He denied auditory and visual hallucinations. There was no evidence of emery delusions or paranoia. Thought process was linear and goal-directed. Thought content ws appropriate. He reported being grateful for the care he received during hospitalization. He reported tolerating all medications well and denied untoward medication effects. There was no evidence of movement disorder. AIMS=0. He reported his sleep was fair and appetite was good. He reported feeling safe and ready for discharge. Verified with [facility] that patient's insurance will only cover 90- day prescriptions. Spoke to patient's who is agreeable to keeping the patient's prescriptions locked in her possession post-discharge. Patient was also in favor of this plan. PLAN: 1. Patient to discharge home into the care of his . 2. Patient to follow-up at [facility] today at 11:15AM. 3. Patient strongly advised to abstain from alcohol, and to attend AA/obtain a sponsor for support in sobriety. 4. All discharge prescriptions (#90 days) were called into [facility], today. Patient verbalized understanding of instruction. 5. In the event of an emergency, call 911/go to nearest emergency department. Patient verbalized understanding of all instructions.
--- NOTE | 2016-12-03 10:07 | NUR ---
WILL BE DISCHARGED TODAY TO [facility] WITH FOLLOW UP AT [facility] [place], INTAKE 11:15am TODAY. MOOD IS STABLE, FULL RANGE OF AFFECT. DENIED THOUGHTS OF SELF HARM WHEN ASKED. EDUCATION ON SUICIDE PREVENTION AND BIPOLAR GIVEN TO PATIENT.
[2016-12-03] MEDS ORDERED: MINIPRESS1 MG PO (10:11)
[2016-12-03] MEDS ORDERED: LAMICTAL100 M2 PO (10:11)
[2016-12-03] MEDS ORDERED: ATORVASTATIN CA20 M1 PO (10:11)
[2016-12-03] MEDS ORDERED: AMLODIPINE BESYL5 M1 PO (10:11)
[2016-12-03] MEDS ORDERED: SEROQUEL100 M1 PO (10:11)
[2016-12-03] MEDS ORDERED: LITHIUM CARBON300 M4 PO (10:41)
[2016-12-03] MEDS ORDERED: LITHIUM CARBON150 M1 PO (10:41)
== END 2016-12-03 11:27 | DRG 885 ==
LOC: ERH 10:12 → ENPENDDIS 11-27 10:26 → ERHI 11-27 10:26 → CP SOUTH 11-27 10:26
PROVIDERS: Physician Assistant; ADMIT Psychiatry & Neurology Psychiatry
DX: F31.9 Bipolar disorder, unspecified (principal); I10 Essential (primary) hypertension; F41.9 Anxiety disorder, unspecified; F10.10 Alcohol abuse, uncomplicated; E78.00 Pure hypercholesterolemia, unspecified
CPT/HCPCS: 36415; 80307; 81001; 93005; 93010; G0463; G0480